=== PATIENT | female | born 1945 | race Caucasian/White ===

== ENCOUNTER 2021-10-09 14:15 | Observation (INO) | payer MEDICARE, OTHER ==
[2021-10-09 15:05] LABS: Basophils % (A) 1 %; Eosinophils # (A) 0.2 k/uL (0-0.7); Eosinophils % (A) 3 %; HCT 50.1 % (34.0-46.0); HGB 15.9 gm/dL (11.4-16.0); Lymphocytes % (A) 18 %; MCH 29.4 pg (25.0-35.0); MCHC 31.8 g/dL (31.0-37.0); MCV 92.4 fL (80.0-100.0); Mean Platelet Volume 9.4; Monocytes # (A) 0.4 k/uL (0-1.0); Monocytes % (A) 8 %; Neutrophils # (A) 3.8 k/uL (1.3-7.7); Neutrophils % (A) 69 %; Platelet Count 116 k/uL (150-450); RBC 5.42 m/uL (3.80-5.40); RDW 13.5 % (11.5-15.5); WBC 5.5 k/uL (3.8-10.6)
[2021-10-09 15:19] LABS: Albumin 4.2 g/dL (3.5-5.0); Calcium 9.4 mg/dL (8.4-10.2); Potassium 3.3 mmol/L (3.5-5.1); Prothrombin Time 11.2 sec (9.0-12.0); Total Bilirubin 0.7 mg/dL (0.2-1.3); Total Protein 7.4 g/dL (6.3-8.2)
--- NOTE | 2021-10-09 15:46 | XR ---
EXAMINATION TYPE: XR chest 2V DATE OF EXAM: 10/09/2021 3:30 PM COMPARISON: Chest radiographs from 03/16/2012. TECHNIQUE: XR chest 2V Frontal and lateral views of the chest. CLINICAL INDICATION:Female, 76 years old with history of weakness; FINDINGS: Lungs/Pleura: There is no evidence of pleural effusion, focal consolidation, or pneumothorax. Pulmonary vascularity: Unremarkable. Heart/mediastinum: Cardiomediastinal silhouette is enlarged and stable. Musculoskeletal: Multiple level degenerative disc disease changes seen throughout the spine. No acute osseous adenopathy. IMPRESSION: No acute cardiopulmonary disease/process. Cardiomegaly.
--- NOTE | 2021-10-09 15:49 | CT ---
EXAMINATION TYPE: CT brain wo con CT DLP: 1231.4 mGycm, Automated exposure control for dose reduction was used. DATE OF EXAM: 10/09/2021 3:27 PM COMPARISON: None. CLINICAL INDICATION:Female, 76 years old with history of altered mental status. TECHNIQUE: Brain: Multiple axial CT images of the brain were obtained without IV contrast. Coronal and sagittal reformats were reviewed. FINDINGS: Brain: Extra-axial spaces: No abnormal extra-axial fluid collections. Ventricular system: Within normal limits Cerebral parenchyma: No acute intraparenchymal hemorrhage or mass effect. The madden-white junction is well differentiated. Cerebral volume loss. Cerebellum: Unremarkable. Mass effect: No evidence of midline shift. Intracranial vasculature: Atherosclerotic calcifications of the intracranial vessels. Soft tissues: Normal. Calvarium/osseous structures: No depressed skull fracture. Paranasal sinuses and mastoid air cells: Clear Visualized orbits: Orbital contents are intact. IMPRESSION: No acute intracranial process.
[2021-10-09 17:31] LABS: Appearance,Urine Clear (Clear); Bilirubin,Urine Negative (Negative); Blood,Urine Negative (Negative); Color,Urine Light Yellow; Glucose,Urine (UA) Negative (Negative); Ketones,Urine Negative (Negative); Leukocyte Esterase,Urine Negative (Negative); Nitrite,Urine Negative (Negative); PH, Urine 7.5 (5.0-8.0); Protein,Urine Negative (Negative); Specific Gravity,Urine 1.009 (1.001-1.035); Urobilinogen,Urine <2.0 mg/dL (<2.0)
[2021-10-09 17:40] LABS: Amphetamine Screen,Urine Not Detected (NotDetected); Barbiturate Screen,Urine Not Detected (NotDetected); Benzodiazepines Screen,Urine Not Detected (NotDetected); Cocaine Screen,Urine Not Detected (NotDetected); Methadone Screen, Urine Not Detected (NotDetected); Opiate Screen,Urine Not Detected (NotDetected); Oxycodone Screen, Urine Not Detected (NotDetected); Phencyclidine Screen,Urine Not Detected (NotDetected); Tricyclic Antidepressant,Urine Not Detected (NotDetected); Urn Cannabinoid Scrn Not Detected (NotDetected)
--- NOTE | 2021-10-09 18:45 | ED ---
Altered Mental Status HPI - General Chief Complaint: Altered Mental Status Stated Complaint: Possible stroke, confusion Time Seen by Provider: 10/09/21 19:00 Source: patient Mode of arrival: ambulatory - History of Present Illness Initial Comments: 76-year-old female with past medical history of hypertension and hyperlipidemia who presents to the emergency department with altered mental status. Sons are at bedside and provides a history. States that they saw her in her normal self. Patient went to bed last night feeling fine. She was awoken this morning by her packaging line attendant. She states that she feels confused and delayed. She is having difficulty expressing her words. She had to be awoken by her packaging line attendant around 10:00 for which she states she normally does not sleep this long. No history of stroke. No extremity weakness. Patient follows commands however delayed wound answering questioning. No chest pain or shortness of breath. No fevers, chills or headache. Denies any recent medication changes. No history of similar in the past. No alleviating, precipitating modifying factors - Related Data Home Medications Medication Instructions Recorded Confirmed Aspirin EC [Ecotrin Low Dose] 81 mg PO DAILY 10/09/21 10/09/21 Elderberry Fruit and Flower [Black 2 cap PO DAILY 10/09/21 10/09/21 Elderberry 575 mg Cap] Esomeprazole Magnesium [NexIUM] 40 mg PO DAILY 10/09/21 10/09/21 Furosemide [Lasix] 80 mg PO DAILY 10/09/21 10/09/21 Losartan Potassium 100 mg PO HS 10/09/21 10/09/21 Metoprolol Succinate (ER) [Toprol 100 mg PO DAILY 10/09/21 10/09/21 XL] Simvastatin [Zocor] 40 mg PO HS 10/09/21 10/09/21 Topiramate 50 mg PO BID 10/09/21 10/09/21 Triamcinolone 0.1% Cream [Kenalog 1 applicatio TOPICAL BID 10/09/21 10/09/21 0.1% Cream] Previous Rx's Medication Instructions Recorded Apixaban [Eliquis] 5 mg PO BID #60 tab 10/10/21 amLODIPine [Norvasc] 10 mg PO DAILY 30 Days #30 tab 10/11/21 Allergies Allergy/AdvReac Type Severity Reaction Status Date / Time something in surgery Allergy Unknown Uncoded 10/09/21 18:53 Review of Systems ROS Statement: Those systems with pertinent positive or pertinent negative responses have been documented in the HPI. ROS Other: All systems not noted in ROS Statement are negative. Past Medical History Past Medical History: Hyperlipidemia, Hypertension History of Any Multi-Drug Resistant Organisms: None Reported Past Surgical History: Section, Hernia Repair, Orthopedic Surgery Additional Past Surgical History / Comment(s): r/l/knee, hernia Past Psychological History: No Psychological Hx Reported Smoking Status: Never smoker Past Alcohol Use History: None Reported Past Drug Use History: None Reported - Past Family History Family Family Medical History: No Reported History General Exam General appearance: alert, in no apparent distress Head exam: Present: atraumatic, normocephalic, normal inspection Eye exam: Present: normal appearance, PERRL, EOMI. Absent: scleral icterus, conjunctival injection, periorbital swelling ENT exam: Present: normal exam, mucous membranes moist Neck exam: Present: normal inspection. Absent: tenderness, meningismus, lymphadenopathy Respiratory exam: Present: normal lung sounds bilaterally. Absent: respiratory distress, wheezes, rales, rhonchi, stridor Cardiovascular Exam: Present: regular rate, normal rhythm, normal heart sounds. Absent: systolic murmur, diastolic murmur, rubs, gallop, clicks GI/Abdominal exam: Present: soft, normal bowel sounds. Absent: distended, tenderness, guarding, rebound, rigid Extremities exam: Present: normal inspection, full ROM, normal capillary refill. Absent: tenderness, pedal edema, joint swelling, calf tenderness Back exam: Present: normal inspection Neurological exam: Present: alert, oriented X3, CN II-XII intact Psychiatric exam: Present: normal affect, normal mood Skin exam: Present: warm, dry, intact, normal color. Absent: rash Course Vital Signs 10/09/21 10/09/21 10/09/21 14:28 19:59 20:00 Temperature 97.7 F 98.0 F Pulse Rate 63 57 L Pulse Rate [ 57 L Pulse Oximetery ] Respiratory 18 18 18 Rate Blood Pressure 178/112 164/80 Blood Pressure 154/73 [Right Arm] O2 Sat by Pulse 97 98 97 Oximetry Medical Decision Making - Medical Decision Making On arrival patient was placed into a 11. Thorough history and physical exam was performed. Patient does have regular. Laboratory studies were conducted and patient is sent for a CT of her brain. Potassium 3.3. CT of the brain demonstrates no acute process. Results are discussed with patient. Did recommend admission for neurology consultation. Spoke with Dr. Caal who agreed to admit the patient. - Lab Data Result diagrams: 10/10/21 08:10 10/10/21 08:10 Lab Results 10/09/21 10/09/21 10/09/21 Range/Units 14:00 14:55 14:55 WBC 5.5 (3.8-10.6) k/uL RBC 5.42 H (3.80-5.40) m/uL Hgb 15.9 (11.4-16.0) gm/dL Hct 50.1 H (34.0-46.0) % MCV 92.4 (80.0-100.0) fL MCH 29.4 (25.0-35.0) pg MCHC 31.8 (31.0-37.0) g/dL RDW 13.5 (11.5-15.5) % Plt Count 116 L (150-450) k/uL MPV 9.4 Neutrophils % 69 % Lymphocytes % 18 % Monocytes % 8 % Eosinophils % 3 % Basophils % 1 % Neutrophils # 3.8 (1.3-7.7) k/uL Lymphocytes # 1.0 (1.0-4.8) k/uL Monocytes # 0.4 (0-1.0) k/uL Eosinophils # 0.2 (0-0.7) k/uL Basophils # 0.0 (0-0.2) k/uL PT 11.2 (9.0-12.0) sec INR 1.0 (<1.2) APTT 24.0 (22.0-30.0) sec Sodium (137-145) mmol/L Potassium (3.5-5.1) mmol/L Chloride (98-107) mmol/L Carbon Dioxide (22-30) mmol/L Anion Gap mmol/L BUN (7-17) mg/dL Creatinine (0.52-1.04) mg/dL Est GFR (CKD-EPI)AfAm (>60 ml/min/1.73 sqM) Est GFR (CKD-EPI)NonAf (>60 ml/min/1.73 sqM) Glucose (74-99) mg/dL Calcium (8.4-10.2) mg/dL Total Bilirubin (0.2-1.3) mg/dL AST (14-36) U/L ALT (4-34) U/L Alkaline Phosphatase (38-126) U/L Troponin I (0.000-0.034) ng/mL Total Protein (6.3-8.2) g/dL Albumin (3.5-5.0) g/dL Urine Color Light Yellow Urine Appearance Clear (Clear) Urine pH 7.5 (5.0-8.0) Ur Specific [place] 1.009 (1.001-1.035) Urine Protein Negative (Negative) Urine Glucose (UA) Negative (Negative) Urine Ketones Negative (Negative) Urine Blood Negative (Negative) Urine Nitrite Negative (Negative) Urine Bilirubin Negative (Negative) Urine Urobilinogen <2.0 (<2.0) mg/dL Ur Leukocyte Esterase Negative (Negative) Urine Opiates Screen Not Detected (NotDetected) Ur Oxycodone Screen Not Detected (NotDetected) Urine Methadone Screen Not Detected (NotDetected) Ur Propoxyphene Screen Not Detected (NotDetected) Ur Barbiturates Screen Not Detected (NotDetected) U Tricyclic Antidepress Not Detected (NotDetected) Ur Phencyclidine Scrn Not Detected (NotDetected) Ur Amphetamines Screen Not Detected (NotDetected) U Methamphetamines Scrn Not Detected (NotDetected) U Benzodiazepines Scrn Not Detected (NotDetected) Urine Cocaine Screen Not Detected (NotDetected) U Marijuana (THC) Screen Not Detected (NotDetected) 10/09/21 10/09/21 Range/Units 14:55 14:55 WBC (3.8-10.6) k/uL RBC (3.80-5.40) m/uL Hgb (11.4-16.0) gm/dL Hct (34.0-46.0) % MCV (80.0-100.0) fL MCH (25.0-35.0) pg MCHC (31.0-37.0) g/dL RDW (11.5-15.5) % Plt Count (150-450) k/uL MPV Neutrophils % % Lymphocytes % % Monocytes % % Eosinophils % % Basophils % % Neutrophils # (1.3-7.7) k/uL Lymphocytes # (1.0-4.8) k/uL Monocytes # (0-1.0) k/uL Eosinophils # (0-0.7) k/uL Basophils # (0-0.2) k/uL PT (9.0-12.0) sec INR (<1.2) APTT (22.0-30.0) sec Sodium 144 (137-145) mmol/L Potassium 3.3 L (3.5-5.1) mmol/L Chloride 106 (98-107) mmol/L Carbon Dioxide 33 H (22-30) mmol/L Anion Gap 5 mmol/L BUN 22 H (7-17) mg/dL Creatinine 0.88 (0.52-1.04) mg/dL Est GFR (CKD-EPI)AfAm 74 (>60 ml/min/1.73 sqM) Est GFR (CKD-EPI)NonAf 64 (>60 ml/min/1.73 sqM) Glucose 107 H (74-99) mg/dL Calcium 9.4 (8.4-10.2) mg/dL Total Bilirubin 0.7 (0.2-1.3) mg/dL AST 39 H (14-36) U/L ALT 20 (4-34) U/L Alkaline Phosphatase 84 (38-126) U/L Troponin I 0.034 (0.000-0.034) ng/mL Total Protein 7.4 (6.3-8.2) g/dL Albumin 4.2 (3.5-5.0) g/dL Urine Color Urine Appearance (Clear) Urine pH (5.0-8.0) Ur Specific [place] (1.001-1.035) Urine Protein (Negative) Urine Glucose (UA) (Negative) Urine Ketones (Negative) Urine Blood (Negative) Urine Nitrite (Negative) Urine Bilirubin (Negative) Urine Urobilinogen (<2.0) mg/dL Ur Leukocyte Esterase (Negative) Urine Opiates Screen (NotDetected) Ur Oxycodone Screen (NotDetected) Urine Methadone Screen (NotDetected) Ur Propoxyphene Screen (NotDetected) Ur Barbiturates Screen (NotDetected) U Tricyclic Antidepress (NotDetected) Ur Phencyclidine Scrn (NotDetected) Ur Amphetamines Screen (NotDetected) U Methamphetamines Scrn (NotDetected) U Benzodiazepines Scrn (NotDetected) Urine Cocaine Screen (NotDetected) U Marijuana (THC) Screen (NotDetected) - EKG Data EKG Comments: EKG done at 1443 demonstrates significant artifacts for which EKG is reading is A. fib with a rate of 105. QRS 99. QTC of 418 I did repeat the patient's EKG at 1843 which demonstrates a sinus bradycardia with a rate of 55. IN interval 135. QRS 107. QTC of 442. Disposition Clinical Impression: Expressive aphasia, Hypokalemia Disposition: ADMITTED IP TO THIS [facility] Condition: Stable Is patient prescribed a controlled substance at d/c from ED?: No Time of Disposition: 19:14 Decision to Admit Reason: Admit from EC Decision Date: 10/09/21 Decision Time: 19:14
[2021-10-09] MEDS ORDERED: ASPIRIN 325 MG TAB PO STA (19:15)
[2021-10-09] MEDS ORDERED: NALOXONE 0.4 MG/ML 1 ML VIAL IV PRN (19:34)
[2021-10-09] MEDS ORDERED: SODIUM CHLORIDE 0.9% 1,000 ML IV SCH (19:45)
[2021-10-09] MEDS ORDERED: POTASSIUM CHLORIDE ER 20 MEQ TAB.ER PO STA (22:28)
[2021-10-09] MEDS: TOPIRAMATE 25 MG TAB PO SCH (23:28)
--- NOTE | 2021-10-10 01:00 | P.HPIM ---
History of Present Illness H&P Date: 10/09/21 Chief Complaint: Altered mental status difficulty with speech 76-year-old female with hypertension controlled with meds, hyperlipidemia Patient was sent into the hospital for evaluation of altered mental status and difficulty with speech. Last time she was seen normal was last night she slept in this morning which is unusual of her until her swatch maker found her in the morning still sleeping woke her up at around 10 in the morning and found that the patient was confused with difficulty finding words family and EMS were notified patient was brought into the hospital for evaluation patient denies any focal neuro deficits her symptoms resolved completely denies any numbness weakness in her feet or legs and hands. Patient denies any fevers or chills denies any urinary changes denies any abdominal pain nausea vomiting chest pain trouble breathing denies any upper respiratory infection symptoms. She denies any history of stroke or heart disease. Denies any history of diabetes denies any smoking. She denies any falls at home. She uses a walker to get around. In the ED CT of the brain was negative Blood work showed mild hypokalemia UA was negative urine drug screen was negative Review of Systems Pertinent positives as noted in HPI. All other systems were reviewed and are negative Past Medical History Past Medical History: Hyperlipidemia, Hypertension History of Any Multi-Drug Resistant Organisms: None Reported Past Surgical History: Section, Hernia Repair, Orthopedic Surgery Additional Past Surgical History / Comment(s): r/l/knee, hernia Past Psychological History: No Psychological Hx Reported Smoking Status: Never smoker Past Alcohol Use History: None Reported Past Drug Use History: None Reported - Past Family History Family Family Medical History: No Reported History Medications and Allergies Home Medications Medication Instructions Recorded Confirmed Type Aspirin EC [Ecotrin Low Dose] 81 mg PO DAILY 10/09/21 10/09/21 History Elderberry Fruit and Flower [Black 2 cap PO DAILY 10/09/21 10/09/21 History Elderberry 575 mg Cap] Esomeprazole Magnesium [NexIUM] 40 mg PO DAILY 10/09/21 10/09/21 History Furosemide [Lasix] 80 mg PO DAILY 10/09/21 10/09/21 History Losartan Potassium 100 mg PO HS 10/09/21 10/09/21 History Metoprolol Succinate (ER) [Toprol 100 mg PO DAILY 10/09/21 10/09/21 History Xl] Simvastatin [Zocor] 40 mg PO HS 10/09/21 10/09/21 History Topiramate 50 mg PO BID 10/09/21 10/09/21 History Triamcinolone 0.1% Cream [Kenalog 1 applicatio TOPICAL BID 10/09/21 10/09/21 History 0.1% Cream] Allergies Allergy/AdvReac Type Severity Reaction Status Date / Time something in surgery Allergy Unknown Uncoded 10/09/21 18:53 Physical Exam Vitals: Vital Signs Temp Pulse Resp BP Pulse Ox 10/09/21 14:28 97.7 F 63 18 178/112 97 Intake and Output 10/09/21 10/09/21 10/09/21 06:59 14:59 22:59 Other: Weight 146.51 kg Constitutional: No acute distress, conversant, pleasant Eyes: Anicteric sclerae, moist conjunctiva, Pupils equal round reactive to light ENMT: NC/AT Oropharynx clear, no erythema, or exudates Neck: Supple, no masses, or JVD No carotid bruits No thyromegaly Lungs: Clear to auscultation Clear to percussion Normal respiratory effort, no accessory muscle use Cardiovascular: Heart regular in rate and rhythm, No murmurs, gallops, or rubs No peripheral edema Abdominal: Soft Nontender, no guarding, rebound or rigidity Abdomen moving with respiration Normoactive bowel sounds obese limiting exam No abdominal wall hernia noted Skin: chronic skin changes bilateral lower third of the legs, otherwise, Normal temperature, tone, texture, turgor Extremities: No digital cyanosis No clubbing Pedal pulses intact and symmetrical Radial pulses intact and symmetrical No calf tenderness Psychiatric: Alert and oriented to person, place and time Appropriate affect fair judgement Neuro Muscles Strength 5/5 in all 4 extremities Sensation to light touch grossly present throughout Cranial nerves II-XII grossly intact No focal sensory deficits Lymphatics: no palpable cervical or supraclavicular , or inguinal lymph nodes Results CBC & Chem 7: 10/09/21 14:55 10/09/21 14:55 Labs: Abnormal Lab Results - Last 24 Hours (Table) 10/09/21 10/09/21 Range/Units 14:55 14:55 RBC 5.42 H (3.80-5.40) m/uL Hct 50.1 H (34.0-46.0) % Plt Count 116 L (150-450) k/uL Potassium 3.3 L (3.5-5.1) mmol/L Carbon Dioxide 33 H (22-30) mmol/L BUN 22 H (7-17) mg/dL Glucose 107 H (74-99) mg/dL AST 39 H (14-36) U/L Assessment and Plan Assessment: TIA check echo check carotid US CT brain negative symptoms resolved completely continue aspirin and statin lipid profile and A1C neuro checks fall precautions PT/OT neuro consult mild hypokalemia , replaced follow up levels in AM Hypertension , continue home meds, losatan and metoprolol polycythemia unknown baseline denies smoking DVT PPX heparin sc tid No code
[2021-10-10] MEDS: PANTOPRAZOLE 40 MG TABLET PO SCH (05:46)
[2021-10-10] MEDS ORDERED: PANTOPRAZOLE 40 MG TABLET PO SCH (07:30)
[2021-10-10] MEDS: ASPIRIN 81 MG PO SCH (08:05)
[2021-10-10] MEDS: METOPROLOL SUCCINATE (ER) 100 MG TAB.ER.24H PO SCH (08:05)
[2021-10-10] MEDS: TOPIRAMATE 25 MG TAB PO SCH ×2 (08:06→20:13)
--- NOTE | 2021-10-10 08:14 | US ---
EXAMINATION TYPE: US carotid duplex BILAT DATE OF EXAM: 10/10/2021 COMPARISON: NONE CLINICAL HISTORY: stroke EXAM MEASUREMENTS: RIGHT: Peak Systolic Velocity (PSV) cm/sec ----- Right CCA: 46.3 ----- Right ICA: 50.1 ----- Right ECA: 56.7 ICA/CCA ratio: 1.1 RIGHT: End Diastole cm/sec ----- Right CCA: 4.5 ----- Right ICA: 10.5 ----- Right ECA: 7.3 LEFT: Peak Systolic Velocity (PSV) cm/sec ----- Left CCA: 58.1 ----- Left ICA: 38.9 ----- Left ECA: 56.7 ICA/CCA ratio: 1.0 LEFT: End Diastole cm/sec ----- Left CCA: 11.8 ----- Left ICA: 14.0 ----- Left ECA: 6.8 VERTEBRALS (direction of flow): Right Vertebral: Retrograde Left Vertebral: Antegrade Rhythm: [place] [address] [place] [address] IMPRESSION: * Limited examination of the right ICA due to patient's body habitus. The visualized proximal portio n appears grossly unremarkable without definitive hemodynamically significant stenosis. * Moderate atherosclerotic changes of the left carotid arterial system without hemodynamically signi ficant stenosis. 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 * Per textile conversion manager, Jayden mills should it. Consider cardiology consultation. * Recommendation for CTA of the neck.
[2021-10-10 08:44] LABS: Basophils % (A) 1 %; Eosinophils # (A) 0.2 k/uL (0-0.7); Eosinophils % (A) 4 %; HCT 46.3 % (34.0-46.0); HGB 14.4 gm/dL (11.4-16.0); Lymphocytes # (A) 0.9 k/uL (1.0-4.8); Lymphocytes % (A) 17 %; MCH 29.4 pg (25.0-35.0); MCHC 31.1 g/dL (31.0-37.0); MCV 94.6 fL (80.0-100.0); Mean Platelet Volume 9.3; Monocytes # (A) 0.4 k/uL (0-1.0); Monocytes % (A) 8 %; Neutrophils # (A) 3.6 k/uL (1.3-7.7); Neutrophils % (A) 67 %; Platelet Count 108 k/uL (150-450); RBC 4.89 m/uL (3.80-5.40); RDW 13.6 % (11.5-15.5); WBC 5.4 k/uL (3.8-10.6)
[2021-10-10 08:58] LABS: African American GFR (CKD) 76 (>60 ml/min/1.73 sqM); Anion Gap 4 mmol/L; Blood Urea Nitrogen 25 mg/dL (7-17); Calcium 8.9 mg/dL (8.4-10.2); Carbon Dioxide 34 mmol/L (22-30); Chloride 106 mmol/L (98-107); Glucose 159 mg/dL (74-99); Non-African American GFR(CKD) 66 (>60 ml/min/1.73 sqM); Potassium 3.6 mmol/L (3.5-5.1); Sodium 144 mmol/L (137-145)
[2021-10-10] MEDS: APIXABAN 5 MG TAB PO SCH ×2 (11:09→20:13)
--- NOTE | 2021-10-10 12:50 | CONS ---
CONSULTATION CHIEF COMPLAINT: Transient confusion. This is a 76-year-old lady with history of hypertension and dyslipidemia who developed sudden-onset confusion. She states that her niece usually comes to clean her house once a week, and when she came in she did not open the door and was quite confused; when her son came also she had garbled speech and could not quite make out what was going on. She was brought to the hospital and gradually her confusion resolved. CT scan of the brain was negative for CVA. One EKG showed sinus rhythm with sinus bradycardia, but there was another EKG that showed atrial fibrillation. Last night she had intermittent runs of atrial fibrillation. Her TSH is normal at 4.3. Creatinine is 0.8. Hemoglobin is normal at 14.4. There is no prior history of coronary artery disease or congestive heart failure. There is no prior history of paroxysmal atrial fibrillation. I believe patient's clinical presentation is consistent with TIA and it is secondary to thromboembolic phenomenon related to the atrial fibrillation. I advised the patient to start Eliquis. I will obtain a 2D echo. Hopefully she can be discharged home tomorrow. PAST MEDICAL HISTORY: Significant for hypertension and dyslipidemia. CURRENT MEDICATIONS: Current medications include Kenalog, topiramate, Zocor 40 daily, aspirin 81 mg daily, Toprol 100 daily, losartan 100 daily, Lasix 80 daily and Nexium. ALLERGIES: There are NO KNOWN DRUG ALLERGIES. FAMILY HISTORY: Negative for premature coronary artery disease. SOCIAL HISTORY: Negative for smoking, EtOH abuse or drug abuse. REVIEW OF SYSTEMS: Fourteen out of 14 review of systems has been performed. Pertinents are as documented. PHYSICAL EXAMINATION: She is comfortable at rest. Afebrile. Heart rate is 57 beats per minute. Blood pressure is 140/80. Respiratory rate is 18. There is no jugular venous distention. There is no carotid bruit. Heart exam reveals first and second heart sounds. No gallop. No murmur. Abdomen is soft, nontender. Examination of extremities reveals bilateral chronic stasis changes, pigmentation with palpable pulses and 1+ edema. ASSESSMENT: 1. Transient ischemic attack. 2. Paroxysmal atrial fibrillation. 3. Hypertensive heart disease. 4. Dyslipidemia. PLAN: I reviewed all the workup that has been done so far, including the CT scan, carotid duplex, EKGs and rhythm strips. I will start the patient on Eliquis if okay with Neurology. I will obtain a 2D echo. Hopefully home tomorrow. Patient will need a stress test down the road to rule out ischemic heart disease, and if necessary we may do an event monitor. MARVA / VASHTI: [id number] /
--- NOTE | 2021-10-10 12:57 | CA ---
Transthoracic Echo Report Name: Birdie Oh Age: 76 Gender: F : 1945 Exam Date: 10/10/2021 08:30 Exam Location: [facility] Ht (in): 61 Wt (lb): 308 Ordering Physician: Richelle Doyle MD Attending/Referring Phys: [id number], Vivek Client Service Manager Suyapa Avendano, AISHA Procedure CPT: Indications: stroke Cardiac Hx: Fm hx of heart disease,htn,hyperlipidemia Technical Quality: Good Contrast 1: Total Dose (mL): Contrast 2: Total Dose (mL): MEASUREMENTS (Male / Female) Normal Values 2D ECHO LVOT Diameter 1.8 cm LA Volume 96.7 cm??? 18 - 58 / 22 - 52 cm??? M-MODE Aortic Root Diameter MM 3.7 cm LA Systolic Diameter MM 4.3 cm LA Ao Ratio MM 1.2 MV E Point Septal Separation 1.1 cm AV Cusp Separation MM 2.0 cm DOPPLER AV Peak Velocity 129.0 cm/s AV Peak Gradient 6.7 mmHg MV Area PHT 2.5 cm??? MR Peak Velocity 557.1 cm/s MR Peak Gradient 124.2 mmHg Mitral E Point Velocity 88.5 cm/s Mitral A Point Velocity 51.3 cm/s Mitral E to A Ratio 1.7 MV Deceleration Time 300.1 ms MV E' Velocity 6.7 cm/s Mitral E to MV E' Ratio 13.1 TR Peak Velocity 162.4 cm/s TR Peak Gradient 10.5 mmHg Right Ventricular Systolic Press 14.9 mmHg FINDINGS Left Ventricle Left ventricular ejection fraction is estimated at 55-60 %. Left ventricular cavity size normal. Left ventricular wall thickness normal. Grade 1 diastolic dysfunction. Right Ventricle The right ventricle is normal in size and function. Right Atrium The right atrium is normal in size. Left Atrium Severely increased left atrial volume. Moderately increased left atrial area. Mitral Valve Structurally normal mitral valve without significant stenosis or prolapse. There is mild to moderate mitral regurgitation. Aortic Valve Focal thickening of the aortic valve cusps. Aortic valve sclerosis. There is no aortic regurgitation. Tricuspid Valve Structurally normal tricuspid valve without significant stenosis. Pulmonary artery systolic pressure is normal. Mild tricuspid regurgitation. Pulmonic Valve Structurally normal pulmonic valve without significant stenosis. There is no pulmonic regurgitation. Pericardium Normal pericardium without effusion. Aorta Normal aortic root dimension. CONCLUSIONS Normal LV size and systolic function with mild concentric LVH. There is mild diastolic dysfunction. There is mild to moderate mitral regurgitation with mitral calcification. Aortic valve sclerosis without stenosis. No significant pulmonary hypertension no pericardial effusion Previewed by: Dr. Laura White MD (Electronically Signed) Final Date: 10 October 2021 12:56
--- NOTE | 2021-10-10 13:03 | P.PN ---
Subjective Patient was examined at bedside today not complaining of any new symptomatology. History was also obtained by some present at bedside. There is no concern for slurred speech however patient was confused and repeating words constantly. She has no deficits during my examination including slurred speech or any focal deficit sensory or motor. Objective - Vital Signs Vital signs: Vital Signs Temp 98.0 F 10/10/21 08:02 Pulse 61 10/10/21 11:08 Resp 18 10/10/21 11:08 BP 164/84 10/10/21 11:08 Pulse Ox 98 10/10/21 11:08 FiO2 Intake & Output 10/09/21 10/10/21 10/10/21 18:59 06:59 18:59 Intake Total 480 Balance 480 Weight 146.51 kg 139.706 kg Intake: Oral 480 Other: Voiding Method External Catheter External Catheter # Voids 1 1 - Exam Gen. patient is awake alert oriented 3 Cardio normal S1/S2 Respiratory no wheezing or rhonchi appreciated Abdomen soft, nontender Neuro cranial S2 12 grossly intact -5 out of 5 strength in the upper and lower extremity -Sensation within normal limits -No slurred speech noted - Labs CBC & Chem 7: 10/10/21 08:10 10/10/21 08:10 Labs: Abnormal Lab Results - Last 24 Hours (Table) 10/09/21 10/09/21 10/10/21 Range/Units 14:55 14:55 08:10 RBC 5.42 H (3.80-5.40) m/uL Hct 50.1 H 46.3 H (34.0-46.0) % Plt Count 116 L 108 L (150-450) k/uL Lymphocytes # 0.9 L (1.0-4.8) k/uL Potassium 3.3 L (3.5-5.1) mmol/L Carbon Dioxide 33 H (22-30) mmol/L BUN 22 H (7-17) mg/dL Glucose 107 H (74-99) mg/dL AST 39 H (14-36) U/L 10/10/21 Range/Units 08:10 RBC (3.80-5.40) m/uL Hct (34.0-46.0) % Plt Count (150-450) k/uL Lymphocytes # (1.0-4.8) k/uL Potassium (3.5-5.1) mmol/L Carbon Dioxide 34 H (22-30) mmol/L BUN 25 H (7-17) mg/dL Glucose 159 H (74-99) mg/dL AST (14-36) U/L Assessment and Plan Assessment: Assessment: #1 rule out TIA #2 essential hypertension #3 hyperlipidemia #4 GERD #5 obesity class III Plan: -Admit to medicine for close monitoring -Aspiration/fall precaution -Continue with aspirin and high intensity statin -She has been started on anticoagulation by neurology we will touch base with him -MRI cannot be completed at this institution secondary to BMI -Obtain hemoglobin A1c, lipid panel -Carotid ultrasound and 2-D echocardiogram -Neurology on board -Due to prophylaxis currently on a Eliquis -anticipate discharge in the next 24 hours. -PT/OT
--- NOTE | 2021-10-10 13:20 | P.CNNES ---
History of Present Illness Consult date: 10/10/21 Requesting physician: Donna Aguayo Reason for Consult: acute expressive aphasia - resolved, possible tia History of Present Illness: Patient is a 76-year-old right-handed female came to the hospital yesterday at 2:15 PM for acute stroke like symptoms with expressive aphasia. Patient's niece Jennie who does housekeeping every morning, came to her house and woke her up at 10 AM. Usually the patient does not sleep that long. When she woke up, patient was very confused about everything. Was not able to speak more than 1-2 words and would stop. She could not remember anything. Patient states that she couldn't talk, but could not make "a lot sense". Patient's son mentions that she would get stuck up on a word and repeat and couldn't talk. Patient denied any facial droop, focal weakness, numbness, headache dizziness. Vital signs arrival blood pressure 178/112, which improved to 164/80. Pulse rate 63 temperature 97.7. Initial EKG shows sinus rhythm. Repeat EKG showed atrial fibrillation with rapid ventricular rate. CT head showed no acute intracranial process. I personally reviewed CT head, agree with the findings. Blood test shows normal WBC hemoglobin 15.9, platelets 116. PT/PTT is normal. Sodium is normal potassium 3.3, BUN 22, creatinine 0.88, AST is borderline 39 normal ALT 20. Troponin negative, TSH normal. UA negative urine drug screen negative. Home medications include aspirin 81 mg, metoprolol 100 mg daily, Lasix 80 mg, Nexium, simvastatin 40 mg, Topamax 50 mg twice a day and losartan. Patient does not know the details why she takes Topamax. According to patient's son her speech significantly improved around 5:30 to 6 PM, and by 9 PM she was back to baseline. At present she has no complaints. Review of Systems Patient does have significant peripheral edema, obesity. All other review of system reviewed, unremarkable except as mentioned in HPI. Past Medical History Past Medical History: Hyperlipidemia, Hypertension History of Any Multi-Drug Resistant Organisms: None Reported Past Surgical History: Section, Hernia Repair, Orthopedic Surgery Additional Past Surgical History / Comment(s): r/l/knee, hernia Past Psychological History: No Psychological Hx Reported Smoking Status: Never smoker Past Alcohol Use History: None Reported Past Drug Use History: None Reported - Past Family History Family Family Medical History: No Reported History Medications and Allergies Home Medications Medication Instructions Recorded Confirmed Type Aspirin EC [Ecotrin Low Dose] 81 mg PO DAILY 10/09/21 10/09/21 History Elderberry Fruit and Flower [Black 2 cap PO DAILY 10/09/21 10/09/21 History Elderberry 575 mg Cap] Esomeprazole Magnesium [NexIUM] 40 mg PO DAILY 10/09/21 10/09/21 History Furosemide [Lasix] 80 mg PO DAILY 10/09/21 10/09/21 History Losartan Potassium 100 mg PO HS 10/09/21 10/09/21 History Metoprolol Succinate (ER) [Toprol 100 mg PO DAILY 10/09/21 10/09/21 History Xl] Simvastatin [Zocor] 40 mg PO HS 10/09/21 10/09/21 History Topiramate 50 mg PO BID 10/09/21 10/09/21 History Triamcinolone 0.1% Cream [Kenalog 1 applicatio TOPICAL BID 10/09/21 10/09/21 History 0.1% Cream] Apixaban [Eliquis] 5 mg PO BID #60 tab 10/10/21 Rx Allergies Allergy/AdvReac Type Severity Reaction Status Date / Time something in surgery Allergy Unknown Uncoded 10/09/21 18:53 Physical Examination - Vital Signs Vital Signs: Vital Signs Temp Pulse Pulse Resp BP BP Pulse Ox 10/10/21 08:02 98.0 F 57 L 18 148/81 96 10/10/21 04:00 98.3 F 53 L 18 132/70 93 L 10/09/21 23:37 98.6 F 78 18 128/76 97 10/09/21 20:00 57 L 18 164/80 97 10/09/21 19:59 98.0 F 57 L 18 154/73 98 10/09/21 14:28 97.7 F 63 18 178/112 97 Intake and Output 10/09/21 10/10/21 10/10/21 22:59 06:59 14:59 Intake Total 480 Balance 480 Intake: Oral 480 Other: Voiding Method External Catheter External Catheter # Voids 1 Weight 146.51 kg 139.706 kg Patient is an elderly female, in no acute distress. Patient is alert awake oriented to time place and person. Patient knows it is September 2021 and that she is in [facility]. Speech and language functions are normal. Patient can name and repeat very well. No aphasia or dysarthria. Attention, concentration and fund of knowledge is adequate. On cranial examination, pupils are round and reacting to light, visual greene are full on confrontation, extraocular muscles are intact with no nystagmus. Face is symmetric, tongue protrudes to the midline. Palatal elevation and sensation normal, hearing is slightly decreased and shoulder shrug normal, facial sensation normal. Shoulder shrug normal. On muscle strength testing, there is no pronator drift and the strength is normal in arms and legs distally and proximally. Deep tendon reflexes are 1+ in the upper limbs, absent in the lower limbs, plantars are flat. Sensory to touch is equal with no neglect. Cerebellar function showed no ataxia for [id number] testing. No dysdiadochokinesia. Tone and bulk of muscles normal. Gait deferred. On general examination, there is no carotid bruit or murmur, S1-S2 audible. Abdomen is soft nontender. No organomegaly, bowel sounds present. Chest is clear. Patient has significant peripheral edema, some weeping of the skin lesions. Results - Laboratory Findings CBC and BMP: 10/10/21 08:10 10/10/21 08:10 Abnormal Lab Findings: Abnormal Labs 10/09/21 10/09/21 10/10/21 14:55 14:55 08:10 RBC 5.42 H Hct 50.1 H 46.3 H Plt Count 116 L 108 L Lymphocytes # 0.9 L Potassium 3.3 L Carbon Dioxide 33 H BUN 22 H Glucose 107 H AST 39 H 10/10/21 08:10 RBC Hct Plt Count Lymphocytes # Potassium Carbon Dioxide 34 H BUN 25 H Glucose 159 H AST Assessment and Plan Assessment: * TIA manifesting with transient expressive aphasia, that resolved within 24 hours. Current NIH stroke scale is 0. * New onset atrial fibrillation * Hypertension * Morbid obesity Plan: * Patient had a TIA manifesting with transient expressive aphasia. Probably embolic from new onset atrial fibrillation. * Patient's current neurological examination is normal, with NIH stroke scale of 0. Neurologically cleared to start anticoagulation with Eliquis * Carotid Doppler revealed limited examination of the right ICA due to patient's body habitus. The visualized proximal portion appears grossly unremarkable without definitive hemodynamically significant stenosis. Moderate atherosc lerotic changes of the left carotid arterial system without hemodynamically significant stenosis. Retrograde flow within the right vertebral artery concerning for subclavian steal syndrome. Recommend CTA of the neck. * We will check CTA of head and neck. * Fasting lipid panel, hemoglobin A1c 5.9 * 2-D echo * Discussed with patient's son in detail. * Telemetric monitoring. * DVT prophylaxis: Patient started on Eliquis. * Neurology will follow. Thank you for the consult.
[2021-10-10 14:56] LABS: Chol/HDL Ratio 3.19 Ratio; LDL Cholesterol,Calculated 105.8 mg/dL (0.0-131.0)
--- NOTE | 2021-10-10 15:23 | CT ---
EXAMINATION TYPE: CT angio head neck CT DLP: 2004.5 mGycm, Automated exposure control for dose reduction was used. DATE OF EXAM: 10/10/2021 2:48 PM COMPARISON: Carotid ultrasound 10/10/2021. CLINICAL INDICATION:Female, 76 years old with history of TIA; PHH, Acute expressive aphasia, possible TIA TECHNIQUE: Axially acquired helical CT angiogram of the head and neck was obtained before and after t he administration of contrast utilizing 65 cc of Isovue-370 administered intravenously. Axial images are supplemented with 3D reconstructions which were post-processed at an independent workstation. ALICE CET criteria used. FINDINGS: CTA HEAD: No evidence of acute intracranial hemorrhage, mass effect, or midline shift. The ventricles, sulci, a nd cisterns are unremarkable. Cerebral volume loss. Orbital contents are intact. The visualized portions of the internal carotid arteries, middle cerebral arteries, anterior cerebral arteries, and posterior cerebral arteries are patent. The basilar and vertebral arteries are patent. CTA NECK: Right Carotid System: The common carotid artery and external carotid artery are patent. Mild calcified plaque in the proxim al internal carotid artery. The carotid bifurcation demonstrates no evidence of hemodynamically signi ficant stenosis. The remaining portions of the internal carotid artery demonstrate normal size withou t significant narrowing. There is medial deviation of the right common carotid artery. Left Carotid System: The common carotid artery and external carotid artery are patent. Mild calcified plaque at the origin of the internal carotid artery. Less than 50% stenosis at the origin of the left internal carotid ar jessica secondary to calcified plaque. The remaining portions of the internal carotid artery demonstrate normal size without significant narrowing. There is medial deviation of the left common carotid shai ry. Vertebral arteries are patent without evidence hemodynamically significant stenosis. There is a three-vessel aortic arch. The origins of the great vessels are patent. No evidence of hemo dynamically significant stenosis. IMPRESSION: 1. Less than 50% stenosis at the origin of the left internal carotid artery secondary to calcified pl aque. No hemodynamically significant stenosis within the right carotid system. No evidence of dissect ion of the cervical internal carotid arteries or vertebral arteries. 2. No evidence of high-grade stenosis or intracranial aneurysm.
[2021-10-10] MEDS ORDERED: ATORVASTATIN 20 MG TAB PO SCH (21:00)
[2021-10-10] MEDS ORDERED: LOSARTAN 50 MG TAB PO SCH (21:00)
[2021-10-11] MEDS: PANTOPRAZOLE 40 MG TABLET PO SCH (06:15)
[2021-10-11] MEDS: ASPIRIN 81 MG PO SCH (07:33)
[2021-10-11] MEDS: APIXABAN 5 MG TAB PO SCH (07:33)
[2021-10-11] MEDS: TOPIRAMATE 25 MG TAB PO SCH (07:33)
[2021-10-11] MEDS: METOPROLOL SUCCINATE (ER) 100 MG TAB.ER.24H PO SCH (07:33)
[2021-10-11 07:38] VITALS: RESP 18; TEMP 97.9
[2021-10-11] MEDS ORDERED: amLODIPine 10 MG TAB PO SCH (09:00)
--- NOTE | 2021-10-11 10:57 | P.DS ---
Providers Date of admission: 10/09/21 19:09 Attending physician: Carlo Caal MD Consults: 10/09/21 19:34 Consult Physician Urgent Consulting Provider: Dereck Thao Consult Reason/Comments: acute expressive aphasia - resolved, possible tia Do you want consulting provider notified?: Yes 10/10/21 01:45 Consult Physician Urgent Consulting Provider: Krys Celis Consult Reason/Comments: A fib Do you want consulting provider notified?: Yes, Notify in am Primary care physician: Physician Nonstaff Hospital Course: 76-year-old female with hypertension controlled with meds, hyperlipidemia Patient was sent into the hospital for evaluation of altered mental status and difficulty with speech. Last time she was seen normal was last night she slept in this morning which is unusual of her until her commercial housekeeper found her in the morning still sleeping woke her up at around 10 in the morning and found that the patient was confused with difficulty finding words family and EMS were notified patient was brought into the hospital for evaluation patient denies any focal neuro deficits her symptoms resolved completely denies any numbness weakness in her feet or legs and hands. Patient denies any fevers or chills denies any urinary changes denies any abdominal pain nausea vomiting chest pain trouble breathing denies any upper respiratory infection symptoms. She denies any history of stroke or heart disease. Denies any history of diabetes denies any smoking. She denies any falls at home. She uses a walker to get around. In the ED CT of the brain was negative Blood work showed mild hypokalemia UA was negative urine drug screen was negative Patient was evaluated by cardiology as well as neurology. CT results were completed which showed less than 50% stenosis at the origin of the left internal carotid artery with some calcified plaque. No hemodynamic compromise noted on the right carotid system. No evidence of dissection of the cervical internal carotid arteries or vertebral arteries noted. No evidence of high-grade stenosis which are continue aneurysms noted. I present discuss his case with the neurologist and has recommended the patient is okay to be discharged from their perspective and to continue with the same treatment. Cardiology is also on board that is also clear the patient for discharge and to follow-up with both their teens outpatient. Patient is okay at this time not complaining of any new symptoms no neurologic deficits noted vital signs have been stable overnight events as per RN. Patient is advised to follow with neurology, cardiology and PCP within 1 week of discharge she demonstrates understanding. Patient Condition at Discharge: Stable Plan - Discharge Summary Discharge Rx Participant: No New Discharge Prescriptions: New amLODIPine [Norvasc] 10 mg PO DAILY 30 Days #30 tab Apixaban [Eliquis] 5 mg PO BID #60 tab Continue Triamcinolone 0.1% Cream [Kenalog 0.1% Cream] 1 applicatio TOPICAL BID Elderberry Fruit and Flower [Black Elderberry 575 mg Cap] 2 cap PO DAILY Losartan Potassium 100 mg PO HS Topiramate 50 mg PO BID Simvastatin [Zocor] 40 mg PO HS Aspirin EC [Ecotrin Low Dose] 81 mg PO DAILY Metoprolol Succinate (ER) [Toprol XL] 100 mg PO DAILY Furosemide [Lasix] 80 mg PO DAILY Esomeprazole Magnesium [NexIUM] 40 mg PO DAILY Discharge Medication List Aspirin EC [Ecotrin Low Dose] 81 mg PO DAILY 10/09/21 [History] Elderberry Fruit and Flower [Black Elderberry 575 mg Cap] 2 cap PO DAILY 10/09/21 [History] Esomeprazole Magnesium [NexIUM] 40 mg PO DAILY 10/09/21 [History] Furosemide [Lasix] 80 mg PO DAILY 10/09/21 [History] Losartan Potassium 100 mg PO HS 10/09/21 [History] Metoprolol Succinate (ER) [Toprol XL] 100 mg PO DAILY 10/09/21 [History] Simvastatin [Zocor] 40 mg PO HS 10/09/21 [History] Topiramate 50 mg PO BID 10/09/21 [History] Triamcinolone 0.1% Cream [Kenalog 0.1% Cream] 1 applicatio TOPICAL BID 10/09/21 [History] Apixaban [Eliquis] 5 mg PO BID #60 tab 10/10/21 [Rx] amLODIPine [Norvasc] 10 mg PO DAILY 30 Days #30 tab 10/11/21 [Rx] Follow up Appointment(s)/Referral(s): Nonstaff,Physician [Primary Care Provider] - 1-2 days Julio Leon MD [STAFF PHYSICIAN] - 2 Weeks Dereck Thao MD [STAFF PHYSICIAN] - 1 Week Patient Instructions/Handouts: Apixaban (By mouth), A-fib (Atrial Fibrillation) (GEN) Discharge Disposition: HOME SELF-CARE
[2021-10-11 11:19] VITALS: BP 154/76; PULSE 57
--- NOTE | 2021-10-11 11:50 | P.PN ---
Subjective This is a 76-year-old female past medical history of hypertension, dyslipidemia. She does not follow with roundsman. We have been asked to the patient in consultation for new onset atrial fibrillation. Patient presents to the emergency department with acute onset confusion, acute onset expressive aphasia. Patient's symptoms resolved. Neurology has been counseled to see the patient. Initial EKG revealed atrial fibrillation with rapid ventricular response, heart rate 105. Patient spontaneously converted to sinus mechanism. * Echocardiogram revealed EF 5560%, moderately decreased left atrial area, mild to moderate mitral regurgitation, mild concentric LVH * Carotid Dopplers revealed limited examination of the right secondary to pat ient's body habitus. Moderate atherosclerotic changes carotid artery without hemodynamically significant stenosis. Retrograde flow within the right vertebral artery is concerning for subclavian steal syndrome 10/11/2021 Patient seen and examined at bedside, no acute distress. She is maintaining sinus rhythm with rates 50s-60s. Her symptoms resolved. She denies any palp itations and chest pain or shortness of breath. Blood pressure elevated this morning at 172/95. She's currently maintained on Eliquis 5 mg twice a day, aspirin 81 mg daily, atorvastatin 20 mg nightly, metoprolol succinate 100 mg daily, losartan 100mg nightly GENERAL: Well-appearing, well-nourished and in no acute distress. NECK: Supple without JVD or thyromegaly. LUNGS: Breath sounds clear to auscultation bilaterally. Respiration equal and unlabored. No wheezes, rales or rhonchi. HEART: Regular rate and rhythm without murmurs, rubs or gallops. S1 and S2 heard. EXTREMITIES: Normal range of motion, no edema. No clubbing or cyanosis. Peripheral pulses intact. ASSESSMENT Acute onset confusion and acute onset specimen aphasia, symptoms resolved TIA Paroxysmal atrial fibrillation, started on Eliquis, maintaining sinus mechanism Hypertension Dyslipidemia PLAN Increase atorvastatin 40mg daily Start amlodipine 10 mg daily Continue Eliquis, case management consulted for Eliquis coverage Continue losartan and metoprolol From cardiology perspective, patient stable to be discharged home. Follow up with Dr. Leon in 2 weeks Nurse Practitioner note has been reviewed, I agree with a documented findings and plan of care. Patient was seen and examined. Objective - Vital Signs Vital signs: Vital Signs Temp 98.0 F 10/10/21 08:02 Pulse 61 10/10/21 13:10 Resp 18 10/10/21 11:08 BP 164/84 10/10/21 11:08 Pulse Ox 98 10/10/21 11:08 FiO2 Intake & Output 10/09/21 10/10/21 10/10/21 18:59 06:59 18:59 Intake Total 480 120 Balance 480 120 Weight 146.51 kg 139.706 kg Intake: Oral 480 120 Other: Voiding Method External Catheter External Catheter # Voids 1 2 # Bowel Movements 0 - Labs CBC & Chem 7: 10/10/21 08:10 10/10/21 08:10 Labs: Abnormal Lab Results - Last 24 Hours (Table) 10/09/21 10/09/21 10/10/21 Range/Units 14:55 14:55 08:10 RBC 5.42 H (3.80-5.40) m/uL Hct 50.1 H 46.3 H (34.0-46.0) % Plt Count 116 L 108 L (150-450) k/uL Lymphocytes # 0.9 L (1.0-4.8) k/uL Potassium 3.3 L (3.5-5.1) mmol/L Carbon Dioxide 33 H (22-30) mmol/L BUN 22 H (7-17) mg/dL Glucose 107 H (74-99) mg/dL AST 39 H (14-36) U/L 10/10/21 Range/Units 08:10 RBC (3.80-5.40) m/uL Hct (34.0-46.0) % Plt Count (150-450) k/uL Lymphocytes # (1.0-4.8) k/uL Potassium (3.5-5.1) mmol/L Carbon Dioxide 34 H (22-30) mmol/L BUN 25 H (7-17) mg/dL Glucose 159 H (74-99) mg/dL AST (14-36) U/L
--- NOTE | 2021-10-11 13:55 | P.PN ---
Subjective Progress Note Date: 10/11/21 Patient was seen for follow-up. Patient offers no complaints. Patient believes her speech is back to normal. Memory functions are normal. Telemetry monitoring at present showing sinus rhythm with sinus bradycardia. No other arrhythmia. Objective - Vital Signs Vital signs: Vital Signs Temp 97.9 F 10/11/21 07:30 Pulse 58 L 10/11/21 07:30 Resp 18 10/11/21 07:30 BP 172/95 10/11/21 07:30 Pulse Ox 96 10/11/21 07:30 FiO2 Intake & Output 10/10/21 10/11/21 10/11/21 18:59 06:59 18:59 Intake Total 120 250 Output Total 400 Balance 120 -150 Intake: Oral 120 250 Output: Urine 400 Other: Voiding Method External Catheter External Catheter External Catheter # Voids 2 4 # Bowel Movements 0 - Exam Mental status, speech and language functions are normal. Patient can name and repeat very well. Cranial nerves are normal. Visual greene are full, face is symmetric and tongue protrudes to the midline. Muscle strength is normal in the arms and legs. No ataxia. She does have peripheral edema. Some venous stasis in the lower expertise. Hyperpigmentation in the distal lower extremities. - Labs CBC & Chem 7: 10/10/21 08:10 10/10/21 08:10 Assessment and Plan Assessment: * TIA manifesting with transient expressive aphasia, that resolved within 24 hours. Current NIH stroke scale is 0. * New onset atrial fibrillation * Hypertension * Morbid obesity Plan: * Patient had a TIA manifesting with transient expressive aphasia. Probably embolic from new onset atrial fibrillation. * Patient's current neurological examination is normal, with NIH stroke scale of 0. Patient started on Eliquis 5 mg twice a day. She is tolerating it well. * Carotid Doppler revealed limited examination of the right ICA due to patient's body habitus. The visualized proximal portion appears grossly unremarkable without definitive hemodynamically significant stenosis. Moderate atherosclerotic changes of the left carotid arterial system without hemodynamically significant stenosis. Retrograde flow within the right vertebral artery concerning for subclavian steal syndrome. Recommend CTA of the neck. * CTA of head and neck revealed less than 50% stenosis of the origin of left ICA secondary to calcified plaque. No hemodynamically significant stenosis within the right carotid system. No evidence of dissection of the cervical internal carotid arteries or vertebral arteries. No evidence of high-grade stenosis or intracranial aneurysm. * Fasting lipid panel, hemoglobin A1c 5.9 * 2-D echo revealed normal left ventricle size and systolic function with mild concentric LVH. There is mild diastolic dysfunction. Mild to moderate MR with mitral calcification. Aortic valve sclerosis without stenosis. * Discussed with patient's son in detail. * Neurologically clear for discharge. Discussed with primary physician.
[2021-10-11] MEDS ORDERED: ATORVASTATIN 40 MG TAB PO SCH (21:00)
== END 2021-10-11 13:56 | disposition home or self-care (01) ==
LOC: EC 14:15 → 3SCARD 19:09
PROVIDERS: ADMIT Internal Medicine; ATTEND Internal Medicine
DX: R47.01 Aphasia (principal); I48.0 Paroxysmal atrial fibrillation; E87.6 Hypokalemia; I11.9 Hypertensive heart disease without heart failure; R41.82 Altered mental status, unspecified; I65.22 Occlusion and stenosis of left carotid artery; E78.5 Hyperlipidemia, unspecified; D75.1 Secondary polycythemia; K21.9 Gastro-esophageal reflux disease without esophagitis; R00.1 Bradycardia, unspecified; E66.01 Morbid (severe) obesity due to excess calories; Z68.43 Body mass index [BMI] 50.0-59.9, adult; Z79.82 Long term (current) use of aspirin; Z79.01 Long term (current) use of anticoagulants; Z79.899 Other long term (current) drug therapy; Z98.891 History of uterine scar from previous surgery; Z98.890 Other specified postprocedural states
CPT/HCPCS: 96361 ×2; 96360; 99285; 36415; 93005; 93306; 97162; 97166; 80061; 80053; 80048; 84443; 84484; 85025 ×2; 85610; 85730; 81003; 80306; 83036; 71046; 93880; 70496; 70450; 70498; G0378 ×3; Q9967

== ENCOUNTER 2022-10-22 12:19 | Inpatient (IN) | payer MEDICARE, OTHER ==
[2022-10-22 12:27] LABS: Glucose,Whole Blood 125 mg/dL (70-110)
[2022-10-22 12:44] LABS: Basophils % (A) 1 %; Eosinophils # (A) 0.2 k/uL (0-0.7); Eosinophils % (A) 3 %; HCT 42.4 % (34.0-46.0); HGB 14.3 gm/dL (11.4-16.0); Lymphocytes # (A) 1.2 k/uL (1.0-4.8); Lymphocytes % (A) 20 %; MCHC 33.8 g/dL (31.0-37.0); MCV 91.7 fL (80.0-100.0); Mean Platelet Volume 9.1; Monocytes # (A) 0.4 k/uL (0-1.0); Monocytes % (A) 7 %; Neutrophils # (A) 3.7 k/uL (1.3-7.7); Neutrophils % (A) 66 %; Platelet Count 105 k/uL (150-450); RBC 4.63 m/uL (3.80-5.40); WBC 5.7 k/uL (3.8-10.6)
[2022-10-22 12:53] LABS: Partial Thromboplastin Time 23.8 sec (22.0-30.0); Prothrombin Time 10.9 sec (9.0-12.0)
[2022-10-22 12:54] LABS: Lactic Acid, Venous 1.6 mmol/L (0.7-2.0)
[2022-10-22 12:55] LABS: ALT 21 U/L (4-34); AST 35 U/L (14-36); African American GFR (CKD) >90 (>60 ml/min/1.73 sqM); Albumin 3.8 g/dL (3.5-5.0); Alkaline Phosphatase 106 U/L (38-126); Anion Gap 10 mmol/L; Blood Urea Nitrogen 15 mg/dL (7-17); Calcium 8.7 mg/dL (8.4-10.2); Carbon Dioxide 26 mmol/L (22-30); Chloride 106 mmol/L (98-107); Glucose 134 mg/dL (74-99); Non-African American GFR(CKD) 85 (>60 ml/min/1.73 sqM); Potassium 3.6 mmol/L (3.5-5.1); Sodium 142 mmol/L (137-145); Total Bilirubin 0.9 mg/dL (0.2-1.3)
--- NOTE | 2022-10-22 13:50 | CT ---
EXAMINATION TYPE: CT brain wo con DATE OF EXAM: 10/22/2022 COMPARISON: 10/09/2021 HISTORY: AMS. Reported hx of stroke. Not called a codee stroke CT DLP: 1221.[address] of the brain was performed. The ventricles, basal cisterns and sulci overlying the cerebral convexities demonstrate mild enlargem ent. There is no evidence for intracranial hemorrhage or sulcal effacement. There is decreased attenuation about the periventricular white matter and deep white matter of both c erebral hemispheres, compatible with chronic small vessel ischemia. Differential diagnosis does inclu de demyelination. No mass effects are seen.No midline shift. Osseous calvarium is intact. If symptoms persist consider MRI. IMPRESSION: 1. Age related atrophic and chronic small vessel ischemic change without acute intracranial process s een at this time.
--- NOTE | 2022-10-22 14:03 | XR ---
EXAMINATION TYPE: XR chest 2V DATE OF EXAM: 10/22/2022 1:47 PM COMPARISON: Chest radiographs from 10/09/2021 TECHNIQUE: XR chest 2V Frontal and lateral views of the chest. CLINICAL INDICATION:Female, 77 years old with history of altered mental status; FINDINGS: Lungs/Pleura: Low lung volumes are present. There is no evidence of pleural effusion, focal consolida tion, or pneumothorax. Pulmonary vascularity: Unremarkable. Heart/mediastinum: Cardiomediastinal silhouette is enlarged and stable. Musculoskeletal: No acute osseous pathology. IMPRESSION: Low lung volumes with a generalized hazy appearance which could represent atelectasis versus pulmonar y edema correlate with serum BNP.
--- NOTE | 2022-10-22 14:27 | ED ---
Altered Mental Status HPI - General Chief Complaint: Altered Mental Status Stated Complaint: AMS, History of Stroke Time Seen by Provider: 10/22/22 12:26 Source: EMS Mode of arrival: EMS Limitations: altered mental status - History of Present Illness Initial Comments: 7-year-old female with a past medical history significant for prior TIA thought to be due to embolus with history of new onset A. fib at time of TIA presents to the ED with a chief complaint of aphasia. Per family last known well was approximately 20:00 last night. Son states today that his cousin went to check on his mother today and she was "not making any sense". Today States That She Is Unable to Express Herself Clearly and Has Difficult time performing tasks. Notes over the past few months has had difficulty with memory. States her current symptoms similar to when she had a TIA in the past. - Related Data Home Medications Medication Instructions Recorded Confirmed Aspirin EC [Ecotrin Low Dose] 81 mg PO DAILY 10/09/21 10/09/21 Elderberry Fruit and Flower [Black 2 cap PO DAILY 10/09/21 10/09/21 Elderberry 575 mg Cap] Esomeprazole Magnesium [NexIUM] 40 mg PO DAILY 10/09/21 10/09/21 Furosemide [Lasix] 80 mg PO DAILY 10/09/21 10/09/21 Losartan Potassium 100 mg PO HS 10/09/21 10/09/21 Metoprolol Succinate (ER) [Toprol 100 mg PO DAILY 10/09/21 10/09/21 XL] Simvastatin [Zocor] 40 mg PO HS 10/09/21 10/09/21 Topiramate 50 mg PO BID 10/09/21 10/09/21 Triamcinolone 0.1% Cream [Kenalog 1 applicatio TOPICAL BID 10/09/21 10/09/21 0.1% Cream] Previous Rx's Medication Instructions Recorded Apixaban [Eliquis] 5 mg PO BID #60 tab 10/10/21 amLODIPine [Norvasc] 10 mg PO DAILY 30 Days #30 tab 10/11/21 Allergies Allergy/AdvReac Type Severity Reaction Status Date / Time something in surgery Allergy Unknown Uncoded 10/09/21 18:53 Review of Systems ROS Statement: Those systems with pertinent positive or pertinent negative responses have been documented in the HPI. ROS Other: All systems not noted in ROS Statement are negative. Past Medical History Past Medical History: Hyperlipidemia, Hypertension History of Any Multi-Drug Resistant Organisms: None Reported Past Surgical History: Section, Hernia Repair, Orthopedic Surgery Additional Past Surgical History / Comment(s): r/l/knee, hernia Past Psychological History: No Psychological Hx Reported Smoking Status: Never smoker Past Alcohol Use History: None Reported Past Drug Use History: None Reported - Past Family History Family Family Medical History: No Reported History General Exam Limitations: altered mental status General appearance: alert, in no apparent distress Eye exam: Present: normal appearance, PERRL, EOMI ENT exam: Present: mucous membranes moist, other (No significant facial symmetry.) Respiratory exam: Present: normal lung sounds bilaterally Cardiovascular Exam: Present: regular rate, normal rhythm GI/Abdominal exam: Present: soft Neurological exam: Present: alert, altered (Oriented to self but not time or place. GCS 14. Patient follows most commands however will repeatedly follow the same commands without moving onto the next.), other (NIH stroke scale of 3. 2 points for LOC and 1. for aphasia.) Skin exam: Present: warm, dry Course Vital Signs 10/22/22 10/22/22 10/22/22 12:20 12:35 12:50 Temperature 97.0 F L Pulse Rate 90 96 89 Respiratory 18 18 15 Rate Blood Pressure 104/88 135/82 143/91 O2 Sat by Pulse 97 97 97 Oximetry 10/22/22 10/22/22 10/22/22 14:00 14:15 14:30 Temperature Pulse Rate 84 93 90 Respiratory 16 20 16 Rate Blood Pressure 162/126 128/72 115/78 O2 Sat by Pulse 97 96 96 Oximetry 10/22/22 10/22/22 14:45 16:00 Temperature Pulse Rate 93 89 Respiratory 16 20 Rate Blood Pressure 106/91 118/76 O2 Sat by Pulse 96 97 Oximetry Medical Decision Making - Medical Decision Making Was pt. sent in by a medical professional or institution (, PA, DRYWALL SPRAYER, urgent c are, hospital, or shelter...) When possible be specific @ -No Did you speak to anyone other than the patient for history (EMS, parent, family, police, friend...)? What history was obtained from this source @ -Spoke to the patient's son who provided entirety of history. For further details please see HPI. Did you review nursing and triage notes (agree or disagree)? Why? @ -I reviewed and agree with nursing and triage notes Were old charts reviewed (outside hosp., previous admission, EMS record, old EKG, old radiological studies, urgent care reports/EKG's, shelter records)? Report findings @ -No old charts were reviewed Differential Diagnosis (chest pain, altered mental status, abdominal pain women, abdominal pain men, vaginal bleeding, weakness, fever, dyspnea, syncope, headache, dizziness, GI bleed, back pain, seizure, CVA, palpatations, mental health, musculoskeletal)? @ -Differential Altered Mental Status: Hypoglycemia, DKA, hypercapnia, ETOH, overdose, CO poisoning, trauma, myxedema coma, HTN encephalopathy, infection, encephalitis, psychosis, intercranial hemorrhage, hepatic encephalopathy, meningitis, CVA, this is not meant to be an all-inclusive list EKG interpreted by me (3pts min.). @ -As above X-rays interpreted by me (1pt min.). @ -None done CT interpreted by me (1pt min.). @ -CT brain and CT tolowa dee-ni' of [place]/neck showed no acute process. U/S interpreted by me (1pt. min.). @ -None done What testing was considered but not performed or refused? (CT, X-rays, U/S, labs)? Why? @ -None What meds were considered but not given or refused? Why? @ -None Did you discuss the management of the patient with other professionals (professionals i.e. , PA, DRYWALL SPRAYER, lab, RT, psych nurse, social research assistant, validation scientist, teacher, fire information officer, dependency case manager)? Give summary @ -East discussed with Dr. Hart who accepted admission. Was smoking cessation discussed for >3mins.? @ -No Was critical care preformed (if so, how long)? @ -No Were there social determinants of health that impacted care today? How? (Homelessness, low income, unemployed, alcoholism, drug addiction, transportation, low edu. Level, literacy, decrease access to med. care, senior living, rehab)? @ -No Was there de-escalation of care discussed even if they declined (Discuss DNR or withdrawal of care, Hospice)? DNR status @ -No What co-morbidities impacted this encounter? (DM, HTN, Smoking, COPD, CAD, Cancer, CVA, ARF, Chemo, Hep., AIDS, mental health diagnosis, sleep apnea, morbid obesity)? @ -A. fib Was patient admitted / discharged? Hospital course, mention meds given and route, prescriptions, significant lab abnormalities, going to OR and other pertinent info. @ -Admission. Imaging studies x-ray show no acute process. Laboratory studies only significant for an elevated ammonia 144. Patient will be admitted inpatient with consult to neurology for TIA/CVA workup. The splenic care with patient's family who is in agreement. Undiagnosed new problem with uncertain prognosis? @ -No Drug Therapy requiring intensive monitoring for toxicity (Heparin, Nitro, Insulin, Cardizem)? @ -No Were any procedures done? @ -No Diagnosis/symptom? @ -Aphasia/altered mental status Acute, or Chronic, or Acute on Chronic? @ -Acute Uncomplicated (without systemic symptoms) or Complicated (systemic symptoms)? @ -Complicated Side effects of treatment? @ -No Exacerbation, Progression, or Severe Exacerbation? @ -No Poses a threat to life or bodily function? How? (Chest pain, USA, CA, pneumonia, PE, COPD, DKA, ARF, appy, cholecystitis, CVA, Diverticulitis, Homicidal, Suicidal, threat to staff... and all critical care pts) @ -Yes, rule out CVA. - Lab Data Result diagrams: 10/22/22 12:27 10/22/22 12:27 Lab Results 10/22/22 10/22/22 10/22/22 Range/Units 12:26 12:27 12:27 WBC 5.7 (3.8-10.6) k/uL RBC 4.63 (3.80-5.40) m/uL Hgb 14.3 (11.4-16.0) gm/dL Hct 42.4 (34.0-46.0) % MCV 91.7 (80.0-100.0) fL MCH 31.0 (25.0-35.0) pg MCHC 33.8 (31.0-37.0) g/dL RDW 14.0 (11.5-15.5) % Plt Count 105 L (150-450) k/uL MPV 9.1 Neutrophils % 66 % Lymphocytes % 20 % Monocytes % 7 % Eosinophils % 3 % Basophils % 1 % Neutrophils # 3.7 (1.3-7.7) k/uL Lymphocytes # 1.2 (1.0-4.8) k/uL Monocytes # 0.4 (0-1.0) k/uL Eosinophils # 0.2 (0-0.7) k/uL Basophils # 0.0 (0-0.2) k/uL PT 10.9 (9.0-12.0) sec INR 1.0 (<1.2) APTT 23.8 (22.0-30.0) sec Sodium (137-145) mmol/L Potassium (3.5-5.1) mmol/L Chloride (98-107) mmol/L Carbon Dioxide (22-30) mmol/L Anion Gap mmol/L BUN (7-17) mg/dL Creatinine (0.52-1.04) mg/dL Est GFR (CKD-EPI)AfAm (>60 ml/min/1.73 sqM) Est GFR (CKD-EPI)NonAf (>60 ml/min/1.73 sqM) Glucose (74-99) mg/dL POC Glucose (mg/dL) 125 H (70-110) mg/dL POC Glu Facility Maintenance Technician ID Everton Mares Plasma Lactic Acid Toan (0.7-2.0) mmol/L Calcium (8.4-10.2) mg/dL Total Bilirubin (0.2-1.3) mg/dL AST (14-36) U/L ALT (4-34) U/L Alkaline Phosphatase (38-126) U/L Ammonia (<30) umol/L Troponin I (0.000-0.034) ng/mL Total Protein (6.3-8.2) g/dL Albumin (3.5-5.0) g/dL Urine Color Urine Appearance (Clear) Urine pH (5.0-8.0) Ur Specific [place] (1.001-1.035) Urine Protein (Negative) Urine Glucose (UA) (Negative) Urine Ketones (Negative) Urine Blood (Negative) Urine Nitrite (Negative) Urine Bilirubin (Negative) Urine Urobilinogen (<2.0) mg/dL Ur Leukocyte Esterase (Negative) 10/22/22 10/22/22 10/22/22 Range/Units 12:27 12:27 12:27 WBC (3.8-10.6) k/uL RBC (3.80-5.40) m/uL Hgb (11.4-16.0) gm/dL Hct (34.0-46.0) % MCV (80.0-100.0) fL MCH (25.0-35.0) pg MCHC (31.0-37.0) g/dL RDW (11.5-15.5) % Plt Count (150-450) k/uL MPV Neutrophils % % Lymphocytes % % Monocytes % % Eosinophils % % Basophils % % Neutrophils # (1.3-7.7) k/uL Lymphocytes # (1.0-4.8) k/uL Monocytes # (0-1.0) k/uL Eosinophils # (0-0.7) k/uL Basophils # (0-0.2) k/uL PT (9.0-12.0) sec INR (<1.2) APTT (22.0-30.0) sec Sodium 142 (137-145) mmol/L Potassium 3.6 (3.5-5.1) mmol/L Chloride 106 (98-107) mmol/L Carbon Dioxide 26 (22-30) mmol/L Anion Gap 10 mmol/L BUN 15 (7-17) mg/dL Creatinine 0.66 (0.52-1.04) mg/dL Est GFR (CKD-EPI)AfAm >90 (>60 ml/min/1.73 sqM) Est GFR (CKD-EPI)NonAf 85 (>60 ml/min/1.73 sqM) Glucose 134 H (74-99) mg/dL POC Glucose (mg/dL) (70-110) mg/dL POC Glu Facility Maintenance Technician ID Plasma Lactic Acid Toan 1.6 (0.7-2.0) mmol/L Calcium 8.7 (8.4-10.2) mg/dL Total Bilirubin 0.9 (0.2-1.3) mg/dL AST 35 (14-36) U/L ALT 21 (4-34) U/L Alkaline Phosphatase 106 (38-126) U/L Ammonia 144 H (<30) umol/L Troponin I <0.012 (0.000-0.034) ng/mL Total Protein 7.0 (6.3-8.2) g/dL Albumin 3.8 (3.5-5.0) g/dL Urine Color Urine Appearance (Clear) Urine pH (5.0-8.0) Ur Specific [place] (1.001-1.035) Urine Protein (Negative) Urine Glucose (UA) (Negative) Urine Ketones (Negative) Urine Blood (Negative) Urine Nitrite (Negative) Urine Bilirubin (Negative) Urine Urobilinogen (<2.0) mg/dL Ur Leukocyte Esterase (Negative) 10/22/22 Range/Units 15:04 WBC (3.8-10.6) k/uL RBC (3.80-5.40) m/uL Hgb (11.4-16.0) gm/dL Hct (34.0-46.0) % MCV (80.0-100.0) fL MCH (25.0-35.0) pg MCHC (31.0-37.0) g/dL RDW (11.5-15.5) % Plt Count (150-450) k/uL MPV Neutrophils % % Lymphocytes % % Monocytes % % Eosinophils % % Basophils % % Neutrophils # (1.3-7.7) k/uL Lymphocytes # (1.0-4.8) k/uL Monocytes # (0-1.0) k/uL Eosinophils # (0-0.7) k/uL Basophils # (0-0.2) k/uL PT (9.0-12.0) sec INR (<1.2) APTT (22.0-30.0) sec Sodium (137-145) mmol/L Potassium (3.5-5.1) mmol/L Chloride (98-107) mmol/L Carbon Dioxide (22-30) mmol/L Anion Gap mmol/L BUN (7-17) mg/dL Creatinine (0.52-1.04) mg/dL Est GFR (CKD-EPI)AfAm (>60 ml/min/1.73 sqM) Est GFR (CKD-EPI)NonAf (>60 ml/min/1.73 sqM) Glucose (74-99) mg/dL POC Glucose (mg/dL) (70-110) mg/dL POC Glu Facility Maintenance Technician ID Plasma Lactic Acid Toan (0.7-2.0) mmol/L Calcium (8.4-10.2) mg/dL Total Bilirubin (0.2-1.3) mg/dL AST (14-36) U/L ALT (4-34) U/L Alkaline Phosphatase (38-126) U/L Ammonia (<30) umol/L Troponin I (0.000-0.034) ng/mL Total Protein (6.3-8.2) g/dL Albumin (3.5-5.0) g/dL Urine Color Colorless Urine Appearance Clear (Clear) Urine pH 7.5 (5.0-8.0) Ur Specific [place] 1.011 (1.001-1.035) Urine Protein Negative (Negative) Urine Glucose (UA) Negative (Negative) Urine Ketones Negative (Negative) Urine Blood Negative (Negative) Urine Nitrite Negative (Negative) Urine Bilirubin Negative (Negative) Urine Urobilinogen <2.0 (<2.0) mg/dL Ur Leukocyte Esterase Negative (Negative) - EKG Data EKG Comments: EKG shows A. fib at [address]-T wave changes. QRS 96, QT/QTc 356/403. Disposition Clinical Impression: Aphasia Disposition: ADMITTED IP TO THIS HOSP Referrals: Nonstaff,Physician [REFERRING] - 1-2 days Time of Disposition: 15:20
--- NOTE | 2022-10-22 14:42 | CT ---
EXAMINATION TYPE: CT angio head neck CT DLP: 703.7 mGycm, Automated exposure control for dose reduction was used. DATE OF EXAM: 10/22/2022 1:54 PM COMPARISON: 10/10/2021. CLINICAL INDICATION:Female, 77 years old with history of AMS hx of stenosis; PHH, AMS. Reported hx of stroke. TECHNIQUE: Axially acquired helical CT angiogram of the head and neck was obtained with contrast. Axi al images are supplemented with 3D reconstructions [facility] criteria used. Contrast used:65 mL of Isovue 370 with IV Contrast, Oral contrast used: None. FINDINGS: CTA HEAD: No evidence of acute intracranial hemorrhage, mass effect, or midline shift. The ventricles, sulci, a nd cisterns are unremarkable. The visualized portions of the internal carotid arteries, middle cerebral arteries, anterior cerebral arteries, and posterior cerebral arteries are patent. The basilar and vertebral arteries are patent. CTA NECK: Medialized course of the carotid arteries. Respiratory motion of the patient during exam limits evalu ation of the inferior common carotid arteries bilaterally secondary to respiratory motion. The bifurc ations appear patent. There is tortuosity to the internal carotid arteries. Right Carotid System: The external carotid arteries are patent. There is less than 25% stenosis at the carotid bifurcation secondary to calcified/noncalcified plaque. The rest of the internal carotid artery is patent. Left Carotid System: The external carotid arteries are patent. There is less than 25% stenosis at the carotid bifurcation secondary to calcified/noncalcified plaque. The rest of the internal carotid artery is patent. Vertebral arteries are patent without evidence hemodynamically significant stenosis. There is a three-vessel aortic arch. The origins of the great vessels are patent. No evidence of hemo dynamically significant stenosis. Upper thorax: IMPRESSION: 1. Motion limited exam of the inferior common carotid arteries. The remainder of the common carotid arteries and internal carotid arteries appear patent. 2. No evidence of dissection of the cervical internal carotid arteries or vertebral arteries or any evidence of significant stenosis at the carotid bifurcations. 3. No evidence of intracranial high-grade stenosis or intracranial aneurysm.
[2022-10-22 15:27] LABS: Appearance,Urine Clear (Clear); Bilirubin,Urine Negative (Negative); Blood,Urine Negative (Negative); Color,Urine Colorless; Glucose,Urine (UA) Negative (Negative); Ketones,Urine Negative (Negative); Leukocyte Esterase,Urine Negative (Negative); Nitrite,Urine Negative (Negative); PH, Urine 7.5 (5.0-8.0); Protein,Urine Negative (Negative); Specific Gravity,Urine 1.011 (1.001-1.035); Urobilinogen,Urine <2.0 mg/dL (<2.0)
[2022-10-22] MEDS ORDERED: ASPIRIN 81 MG PO STA (15:32)
[2022-10-22] MEDS ORDERED: ONDANSETRON 4 MG/2 ML VIAL IVP PRN (16:14)
[2022-10-22] MEDS ORDERED: HYDROmorphone 0.5 MG/0.5 ML SYRINGE IVP PRN (16:14)
[2022-10-22] MEDS ORDERED: ACETAMINOPHEN TAB 325 MG TAB PO PRN (16:14)
[2022-10-22] MEDS ORDERED: NALOXONE 0.4 MG/ML 1 ML VIAL IV PRN (16:14)
--- NOTE | 2022-10-22 16:25 | P.HPIM ---
History of Present Illness H&P Date: 10/22/22 Patient is a 77-year-old female with history of TIA, hypertension, dyslipidemia, atrial fibrillation on Eliquis presenting with aphasia. Patient unable to provide meaningful history. No family member around. Per report, last well- known was 8 PM last night. Patient denies any pain. She denies any smoking, alcohol, illicit drug use. In the ED, temperature was 97, pulse 90, respiratory rate 18, blood pressure 104/82, saturating at 97% on room air. Laboratory analysis showed WBC of 5.7, hemoglobin 14.3, platelet 105, sodium 142, potassium 3.6, creatinine 0.66, glucose 134, ammonia level CXLIV, troponin negative. CT head did not show any acute process. CT angiogram head and neck showed patent arteries without any dissection or significant stenosis. Chest x-ray independently interpreted shows poor inspiratory effort, possible vascular congestion. Patient admitted for strokelike symptoms. Pertinent positives and negatives as discussed in HPI, a complete review of systems was performed and all other systems are negative. Patient seen and examined at bedside. Vital signs reviewed General: nontoxic, no distress, appears at stated age Derm: warm, dry Head: atraumatic, normocephalic, symmetric Eyes: EOMI, no lid lag, anicteric sclera, pupils equal round reactive to light ENT: Nose and ears atraumatic Neck: No thyromegaly, supple Mouth: no lip lesion, mucus membranes moist Cardiovascular: S1S2 irregular, no murmur, no edema Lungs: clear to auscultation bilateral, no rhonchi, no rales, no wheeze, no accessory muscle use Abdominal: soft, nontender to palpation, no guarding, no appreciable organomegaly Ext: no gross muscle atrophy, muscle strength muscle strength 5 out of 5 in all 4 extremities, no contractures Neuro: CN II-XII grossly intact, continues to repeat herself, as aphasia Psych: Alert, oriented 1, appropriate affect Assessment/Plan: Active: Acute CVA Aphasia Acute metabolic encephalopathy History of TIA Permanent Atrial fibrillation on Eliquis Hypertension Dyslipidemia -Echocardiogram with bubble study -MRI brain -Neurology consulted -Unsure if patient is taking her Eliquis given coagulation panel is normal -Continue aspirin and statin -Normal saline at 100 mL an hour -Neuro checks and telemetry -Hold antihypertensives -PT/OT/speech therapy -Continue rest of the medications when reconciled The patient is admitted with an anticipated greater than 2 midnight stay as inpatient status for evaluation of acute CVA. Surrogate decision-maker: son CODE STATUS: Full code DVT prophylaxis: Eliquis Anticipated discharge date: Pending clinical course Anticipated discharge place: Pending clinical course A total of 55 minutes was spent on the care of this complex patient more than 50% of the time was spent in counseling and care coordination. Past Medical History Past Medical History: Hyperlipidemia, Hypertension History of Any Multi-Drug Resistant Organisms: None Reported Past Surgical History: Section, Hernia Repair, Orthopedic Surgery Additional Past Surgical History / Comment(s): r/l/knee, hernia Past Psychological History: No Psychological Hx Reported Smoking Status: Never smoker Past Alcohol Use History: None Reported Past Drug Use History: None Reported - Past Family History Family Family Medical History: No Reported History Medications and Allergies Home Medications Medication Instructions Recorded Confirmed Type Aspirin EC [Ecotrin Low Dose] 81 mg PO DAILY 10/09/21 10/09/21 History Elderberry Fruit and Flower [Black 2 cap PO DAILY 10/09/21 10/09/21 History Elderberry 575 mg Cap] Esomeprazole Magnesium [NexIUM] 40 mg PO DAILY 10/09/21 10/09/21 History Furosemide [Lasix] 80 mg PO DAILY 10/09/21 10/09/21 History Losartan Potassium 100 mg PO HS 10/09/21 10/09/21 History Metoprolol Succinate (ER) [Toprol 100 mg PO DAILY 10/09/21 10/09/21 History XL] Simvastatin [Zocor] 40 mg PO HS 10/09/21 10/09/21 History Topiramate 50 mg PO BID 10/09/21 10/09/21 History Triamcinolone 0.1% Cream [Kenalog 1 applicatio TOPICAL BID 10/09/21 10/09/21 History 0.1% Cream] Apixaban [Eliquis] 5 mg PO BID #60 tab 10/10/21 Rx amLODIPine [Norvasc] 10 mg PO DAILY 30 Days #30 tab 10/11/21 Rx Allergies Allergy/AdvReac Type Severity Reaction Status Date / Time something in surgery Allergy Unknown Uncoded 10/09/21 18:53 Physical Exam Vitals: Vital Signs Temp Pulse Resp BP Pulse Ox 10/22/22 16:00 89 20 118/76 97 10/22/22 14:45 93 16 106/91 96 10/22/22 14:30 90 16 115/78 96 10/22/22 14:15 93 20 128/72 96 10/22/22 14:00 84 16 162/126 97 10/22/22 12:50 89 15 143/91 97 10/22/22 12:35 96 18 135/82 97 10/22/22 12:20 97.0 F L 90 18 104/88 97 Intake and Output 10/22/22 10/22/22 10/22/22 06:59 14:59 22:59 Other: Weight 136.078 kg Results CBC & Chem 7: 10/22/22 12:27 10/22/22 12:27 Labs: Abnormal Lab Results - Last 24 Hours (Table) 10/22/22 10/22/22 10/22/22 Range/Units 12:26 12:27 12:27 Plt Count 105 L (150-450) k/uL Glucose 134 H (74-99) mg/dL POC Glucose (mg/dL) 125 H (70-110) mg/dL Ammonia (<30) umol/L 10/22/22 Range/Units 12:27 Plt Count (150-450) k/uL Glucose (74-99) mg/dL POC Glucose (mg/dL) (70-110) mg/dL Ammonia 144 H (<30) umol/L
[2022-10-22] MEDS: SODIUM CHLORIDE 0.9% 1,000 ML IV SCH (17:48)
[2022-10-22] MEDS: ESOMEPRAZOLE 40 MG PO SCH (20:27)
[2022-10-22] MEDS: ATORVASTATIN 20 MG TAB PO SCH (21:15)
[2022-10-22] MEDS: APIXABAN 5 MG TAB PO SCH (21:15)
[2022-10-23] MEDS: SODIUM CHLORIDE 0.9% 1,000 ML IV SCH ×2 (03:00→15:57)
[2022-10-23] MEDS: METOPROLOL SUCCINATE (ER) 100 MG TAB.ER.24H PO SCH (09:02)
[2022-10-23] MEDS: ESOMEPRAZOLE 40 MG PO SCH (09:02)
[2022-10-23] MEDS: APIXABAN 5 MG TAB PO SCH ×2 (09:02→21:24)
[2022-10-23] MEDS: ASPIRIN 81 MG PO SCH (09:02)
--- NOTE | 2022-10-23 09:39 | CA ---
Transthoracic Echo Report Name: Birdie Oh Age: 77 Gender: F : 1945 Exam Date: 10/23/2022 07:36 Exam Location: [facility] Ht (in): 64 Wt (lb): 300 Ordering Physician: To Hart MD Attending/Referring Phys: [employer] [facility] Procedure CPT: Indications: stroke Cardiac Hx: Technical Quality: Fair Contrast 1: Agitated Saline Total Dose (mL): 5 Contrast 2: Total Dose (mL): MEASUREMENTS (Male / Female) Normal Values 2D ECHO LV Diastolic Diameter PLAX 5.1 cm 4.2 - 5.9 / 3.9 - 5.3 cm LV Systolic Diameter PLAX 3.5 cm IVS Diastolic Thickness 1.2 cm 0.6 - 1.0 / 0.6 - 0.9 cm LVPW Diastolic Thickness 1.1 cm 0.6 - 1.0 / 0.6 - 0.9 cm LV Relative Wall Thickness 0.4 LVOT Diameter 2.0 cm Ascending Aorta Diameter 3.4 cm M-MODE Aortic Root Diameter MM 3.6 cm LA Systolic Diameter MM 4.6 cm LA Ao Ratio MM 1.3 AV Cusp Separation MM 1.3 cm DOPPLER AV Peak Velocity 153.9 cm/s AV Peak Gradient 9.5 mmHg AV Mean Velocity 111.5 cm/s AV Mean Gradient 5.5 mmHg AV Velocity Time Integral 33.9 cm LVOT Peak Velocity 89.6 cm/s LVOT Peak Gradient 3.2 mmHg LVOT Velocity Time Integral 20.0 cm LVOT Stroke Volume 60.8 cm??? LVOT Stroke Volume Index 26.2 ml/m??? LVOT Cardiac Index 1801.2 cm???/min???m??? AV Area Cont Eq vti 1.8 cm??? AV Area Cont Eq pk 1.8 cm??? MV Peak Velocity 120.7 cm/s MV Peak Gradient 5.8 mmHg MV Mean Velocity 64.0 cm/s MV Mean Gradient 2.0 mmHg MV Velocity Time Integral 31.2 cm MR Peak Velocity 492.7 cm/s MR Peak Gradient 97.1 mmHg Mitral E Point Velocity 117.4 cm/s MV Deceleration Time 177.4 ms LV E' Lateral Velocity 14.0 cm/s Mitral E to LV E' Lateral Ratio 8.4 LV E' Septal Velocity 8.6 cm/s Mitral E to LV E' Septal Ratio 13.6 TR Peak Velocity 242.3 cm/s TR Peak Gradient 23.5 mmHg Right Atrial Pressure 15.0 mmHg Pulmonary Artery Systolic Pressu 38.5 mmHg Right Ventricular Systolic Press 38.5 mmHg FINDINGS Left Ventricle Mildly increased septal wall thickness. Mildly increased posterior wall thickness. Mild concentric left ventricular hypertrophy. Left ventricular cavity size at the upper limits of normal. No obvious regional wall motion abnormalities. Left ventricular ejection fraction is estimated at 55-60%. Right Ventricle Moderate right ventricular dilatation. Mild pulmonary hypertension. Right Atrium Severe right atrial dilatation. Left Atrium Moderate left atrial dilatation. No gxvvi-jf-idxb shunt seen at the atrial level with contrast. Mitral Valve Structurally normal mitral valve. Mitral valve thickened. Moderate mitral regurgitation. Aortic Valve Focal thickening of the aortic valve cusps. Aortic valve sclerosis. No aortic regurgitation. Tricuspid Valve Structurally normal tricuspid valve. Liof-qk-brqkawww tricuspid regurgitation. Pulmonic Valve Pulmonic valve not well visualized. Trace pulmonic regurgitation. Pericardium No pericardial effusion. Echo free space anterior to the right ventricle likely represents a fat pad. Aorta Normal size aortic root and proximal ascending aorta. CONCLUSIONS Negative bubble study. Normal LV size and systolic function with mild concentric LVH. Biatrial enlargement more of the right atrium. I aortic valve sclerosis without significant restriction moderate mitral and mild tricuspid regurgitation. No significant pulmonary hypertension. No pericardial effusion Previewed by: Dr. Laura White MD (Electronically Signed) Final Date: 23 October 2022 09:38
--- NOTE | 2022-10-23 09:55 | P.CNNES ---
History of Present Illness Consult date: 10/22/22 Requesting physician: Antonio Raymundo Reason for Consult: Aphasia NIH SS 3 History of Present Illness: Patient is a 77-year-old female with history of previous TIA, atrial fibrillation, hypertension, morbid obesity came to the hospital by ambulance today at 12:19 PM. 4 another episode of possible TIA manifesting with speech difficulty. Patient was seen by myself on 10/11/2021 for transient expressive aphasia that resolved within 24 hours. Patient at that time had presented with new onset atrial fibrillation. Patient was started on Eliquis 5 mg twice a day and discharge. Patient's 2 sons and a granddaughter was present, who provided with a history. Patient's niece apparently comes every Friday to complete her house. Patient usually unlocks the door earlier so she can come in. Patient's knees came to her house, but the door was locked. She ring the duarte, but patient did not answer to the doorbell, although patient believed that she had already opened the door. Apparently the patient went to the garage door and it took a very long time for her able to open the door, although it is a simple door handle. When she was not able to open the door, she lost her temper. Once her niece came in, patient could not talk, was like in the brain fog and was just answering in "yes no" answers". She was not clear, couldn't communicate, words did not come out quickly. There was no facial droop, problem with the vision. Or focal weakness noted. At baseline, patient struggles with walking with her walker by herself inside her house. Patient's family believed that the episode in September 2021 was worse than this one. Patient's granddaughter states that some days she is more clear mentally remembers names and cracks jokes, and some days she does not understand, rambles, does not joke around. Patient's family also mentioned that about 2 or 3 times a week, patient has episodes of brain fog in which she spaces out, and then comes back in couple hours. During these episodes, she has to pause and think what she has to say. No history of seizures. As per EMS flow sheet, when they arrived, patient was sitting in her recliner. Family mentioned that they found the patient in the kitchen with confusion. Family states that the patient has a past history of TIA, and they think that patient might have had a stroke. Patient lives alone. Last known well time was yesterday morning. Patient was alert but answering questions inappropriately, unable to follow commands. Patient denied any trauma. Patient continued to have expressive aphasia. Patient stated that this does not feel like her prev ious CVA. Denied any trauma headache or pain. No facial droop, negative for arm drift or weakness. Patient had extreme difficulty following directions. Vital signs at the scene was blood pressure 146/82, pulse rate 100, respiration 10, saturation 96% blood glucose 141. Vital signs on arrival blood pressure 104/88, pulse rate 90, temperature 97.0. CT head showed age-related atrophic and chronic small vessel ischemic change without acute intracranial process seen at this time. I personally reviewed CT head, agree with the findings. Chest x-ray showed low lung volumes with a generalized hazy appearance which could represent atelectasis versus pulmonary edema. Correlate with serum BNP. EKG shows atrial fibrillation. Blood tests shows normal CBC, PT/PTT, normal CMP, and negative troponin, UA negative. Patient has been seen by myself on 10/11/2021 for TIA manifesting with transient expressive aphasia, that resolved within 24 hours. Patient had new onset atrial fibrillation at the time, hypertension and morbid obesity. Patient was started on Eliquis 5 mg twice a day at that time. Her hemoglobin A1c was 5.9 at that time. Home medications include losartan 100 mg at bedtime, simvastatin 40 mg, metoprolol 100 mm gram daily, Lasix 80 mg, Nexium, amlodipine 10 mg and Eliquis 5 mg twice a day. Review of Systems Constitutional: Denies chills, Denies fever Eyes: denies blurred vision, denies diplopia, denies pain Ears: bilateral: decreased hearing, deny: ear discharge Ears, nose, mouth and throat: Denies headache, Denies sore throat Cardiovascular: Reports shortness of breath (Sometimes), Denies chest pain Respiratory: Reports cough, Denies excessive sputum Gastrointestinal: Denies abdominal pain, Denies diarrhea, Denies nausea, Denies vomiting Genitourinary: Reports mixed incontinence, Denies dysuria, Denies hematuria Musculoskeletal: Denies low back pain, Denies myalgias, Denies neck pain Integumentary: Reports color changes, Reports darkening of skin, Reports lesions, Reports rash, Reports sores, Reports wounds, Denies pruritus Neurological: Reports as per HPI Endocrine: Reports fatigue, Denies weight change Hematologic/Lymphatic: Reports easy bleeding, Reports easy bruising Past Medical History Past Medical History: Hyperlipidemia, Hypertension History of Any Multi-Drug Resistant Organisms: None Reported Past Surgical History: Section, Hernia Repair, Orthopedic Surgery Additional Past Surgical History / Comment(s): r/l/knee, hernia Past Psychological History: No Psychological Hx Reported Smoking Status: Never smoker Past Alcohol Use History: None Reported Past Drug Use History: None Reported - Past Family History Family Family Medical History: No Reported History Medications and Allergies Home Medications Medication Instructions Recorded Confirmed Type Esomeprazole Magnesium [NexIUM] 40 mg PO DAILY 10/09/21 10/22/22 History Furosemide [Lasix] 80 mg PO DAILY 10/09/21 10/22/22 History Losartan Potassium 100 mg PO HS 10/09/21 10/22/22 History Metoprolol Succinate (ER) [Toprol 100 mg PO DAILY 10/09/21 10/22/22 History XL] Simvastatin [Zocor] 40 mg PO HS 10/09/21 10/22/22 History Apixaban [Eliquis] 5 mg PO BID #60 tab 10/10/21 10/22/22 Rx amLODIPine [Norvasc] 10 mg PO DAILY 30 Days #30 tab 10/11/21 10/22/22 Rx Allergies Allergy/AdvReac Type Severity Reaction Status Date / Time something in surgery Allergy Unknown Uncoded 10/09/21 18:53 Physical Examination - Vital Signs Vital Signs: Vital Signs Temp Pulse Resp BP Pulse Ox 10/22/22 16:00 89 20 118/76 97 10/22/22 14:45 93 16 106/91 96 10/22/22 14:30 90 16 115/78 96 10/22/22 14:15 93 20 128/72 96 10/22/22 14:00 84 16 162/126 97 10/22/22 12:50 89 15 143/91 97 10/22/22 12:35 96 18 135/82 97 10/22/22 12:20 97.0 F L 90 18 104/88 97 Intake and Output 10/22/22 10/22/22 10/22/22 06:59 14:59 22:59 Other: Weight 136.078 kg Patient is an elderly female, in no acute distress. Patient is alert awake oriented to time place and person. Patient states it is September 2022, but then said it was October which is correct. She knows that she is in [facility] in [facility] and her date of . Speech and language functions are normal. Patient can name and repeat very well. No aphasia or dysarthria. Attention, concentration and fund of knowledge is adequ ate. Detail cognitive function testing deferred. On cranial nerve examination, pupils are equal, round and reacting to light, visual greene are full on confrontation, with no neglect on double simultaneous stimulation. Extraocular muscles are intact with no nystagmus. Face is symmetric, tongue protrudes to the midline. Palatal elevation and sensation normal, hearing is moderately decreased bilaterally and shoulder shrug normal, facial sensation normal. On muscle strength testing, there is no pronator drift and the strength is normal in arms and legs distally and proximally. Patient has significant myoclonic jerks of outstretched hands bilaterally. Deep tendon reflexes are symmetric 1+ to 2 at bilateral biceps, brachioradialis, 2 at the knees, and plantars downgoing bilaterally. Sensory to touch is equal with no neglect on double simultaneous stimulation. Cerebellar function showed no ataxia for bmlfgv-ke-wade testing. No dysdiadochokinesia. Tone and bulk of muscles normal. Gait deferred.. On general examination, there is no carotid bruit or murmur, S1-S2 audible. Ch est is clear on consultation. Abdomen is soft nontender. No organomegaly, bowel sounds present. Patient has significant peripheral edema. Patient has significant venous stasis changes, skin changes, with some redness, oozing from the skin of the lower legs bilaterally. Cannot rule out some component of cellulitis. Results - Laboratory Findings CBC and BMP: 10/22/22 12:27 10/22/22 12:27 Abnormal Lab Findings: Abnormal Labs 10/22/22 10/22/22 10/22/22 12:26 12:27 12:27 Plt Count 105 L Glucose 134 H POC Glucose (mg/dL) 125 H Ammonia 10/22/22 12:27 Plt Count Glucose POC Glucose (mg/dL) Ammonia 144 H Assessment and Plan Assessment: * Recurrent episodes of brain fog, with some speech difficulty, unclear cause. Patient is already on Eliquis 5 mg twice a day and aspirin 81 mg daily, therefore TIA appears less likely. Rule out seizures, rule out intermittent metabolic encephalopathy. * Myoclonic jerks of the outstretched hands, suggestive of metabolic encephalopathy. Her intermittent episodes of brain fog could be related to possible intermittent metabolic encephalopathy. * Atrial fibrillation * Rule out cellulitis lower extremities * Hypertension * Morbid obesity Plan: * MRI of the brain initiated by primary team. * Check EEG rule out epileptiform activity. * Patient has myoclonic jerks of outstretched hands. This is suggestive of possible metabolic encephalopathy. We will defer to IM to evaluate for any obvious causes of encephalopathy. Rule out cellulitis. * CTA of head and neck revealed motion limited exam of the inferior, and carotid arteries. The remainder of the common carotid arteries and internal to arteries appears patent. No evidence of dissection of the cervical internal carotid arteries or vertebral arteries or any evidence of significant stenosis at the carotid bifurcations. No evidence of intracranial high-grade stenosis or intracranial aneurysm. * 2-D echo. * TSH, hemoglobin A1c, lipid panel, B12. * Continue telemetry monitoring. * Continue Eliquis 5 mg twice a day and aspirin. * Patient was on simvastatin 40 mg, currently placed on Lipitor 40 mg daily. * Neurology will follow. Thank you for the consult. Discussed extensively with patient's family. Time with Patient: Greater than 30 (Complexity high)
--- NOTE | 2022-10-23 13:06 | MR ---
EXAMINATION TYPE: MR brain wo con DATE OF EXAM: 10/23/2022 12:50 PM COMPARISON: NONE HISTORY: Aphasia, evaluate for stroke. FINDINGS: The ventricles, basal cisterns and sulci overlying the cerebral convexities are mildly enlarged. There is evidence of [id number] periventricular white matter ischemic demyelination. Underlying demyelinating disease not excluded. Remote deep white matter insults are also noted. No acute edema is seen on diffusion weighted imaging. There is no evidence for midline shift or mass effect. Acute intracranial hemorrhage or extra-axial collection is not evident. The paranasal sinuses and mastoid air cells are well-aerated. IMPRESSION: Age-related atrophic and chronic small vessel ischemic change. Underlying demyelinating disease is n ot excluded. No acute intracranial process at this time.
[2022-10-23 15:50] LABS: Basophils % (A) 1 %; Eosinophils # (A) 0.1 k/uL (0-0.7); Eosinophils % (A) 3 %; HCT 43.1 % (34.0-46.0); HGB 13.9 gm/dL (11.4-16.0); Lymphocytes % (A) 20 %; MCH 30.1 pg (25.0-35.0); MCHC 32.2 g/dL (31.0-37.0); MCV 93.5 fL (80.0-100.0); Mean Platelet Volume 8.8; Monocytes # (A) 0.4 k/uL (0-1.0); Monocytes % (A) 9 %; Neutrophils # (A) 3.2 k/uL (1.3-7.7); Neutrophils % (A) 65 %; Platelet Count 108 k/uL (150-450); Potassium 3.9 mmol/L (3.5-5.1); RBC 4.61 m/uL (3.80-5.40); RDW 13.9 % (11.5-15.5); WBC 4.9 k/uL (3.8-10.6)
[2022-10-23 15:51] LABS: African American GFR (CKD) >90 (>60 ml/min/1.73 sqM); Anion Gap 7 mmol/L; Blood Urea Nitrogen 16 mg/dL (7-17); Calcium 8.4 mg/dL (8.4-10.2); Carbon Dioxide 27 mmol/L (22-30); Chloride 109 mmol/L (98-107); Glucose 107 mg/dL (74-99); Magnesium 1.9 mg/dL (1.6-2.3); Non-African American GFR(CKD) 85 (>60 ml/min/1.73 sqM); Sodium 143 mmol/L (137-145)
--- NOTE | 2022-10-23 17:42 | P.PN ---
Progress Note - Text Progress Note Date: 10/23/22 Presenting complaint: Difficulty with speech Hospital course: Patient is a 77-year-old female with history of TIA, hypertension, dyslipidemia, atrial fibrillation on Eliquis presenting with aphasia. Patient unable to provide meaningful history. No family member around. Per report, last well- known was 8 PM last night. Patient denies any pain. She denies any smoking, alcohol, illicit drug use. In the ED, temperature was 97, pulse 90, respiratory rate 18, blood pressure 104/82, saturating at 97% on room air. Laboratory analysis showed WBC of 5.7, hemoglobin 14.3, platelet 105, sodium 142, potassium 3.6, creatinine 0.66, glucose 134, ammonia level CXLIV, troponin negative. CT head did not show any acute process. CT angiogram head and neck showed patent arteries without any dissection or significant stenosis. Chest x-ray independently interpreted shows poor inspiratory effort, possible vascular congestion. Patient admitted for strokelike symptoms. 11/02/2022: Patient presented with finding difficulty to able to express herself and works. No other focal symptoms. Admitted with a diagnosis of stroke. MRI done today was showing chronic changes. Pending EEG. Patient has not noticed any change in his speech and the fact that she still finding it difficult to express what she wants to speak. Active Medications Acetaminophen (Acetaminophen Tab 325 Mg Tab) 650 mg PO Q6HR PRN PRN Reason: Mild Pain or Fever > 100.5 Apixaban (Apixaban 5 Mg Tab) 5 mg PO BID [facility]; Protocol Last Admin: 10/23/22 09:02 Dose: 5 mg Aspirin (Aspirin 81 Mg) 81 mg PO DAILY [facility] Last Admin: 10/23/22 09:02 Dose: 81 mg Atorvastatin Calcium (Atorvastatin 20 Mg Tab) 20 mg PO HS [facility] Last Admin: 10/22/22 21:15 Dose: 20 mg Hydromorphone HCl (Hydromorphone 0.5 Mg/0.5 Ml Syringe) 0.5 mg IVP Q3HR PRN PRN Reason: Moderate Pain (Scale 4 to 6) Metoprolol Succinate (Metoprolol Succinate (Er) 100 Mg Tab.Er.24h) 100 mg PO DAILY [facility] Last Admin: 10/23/22 09:02 Dose: 100 mg Naloxone HCl (Naloxone 0.4 Mg/Ml 1 Ml Vial) 0.2 mg IV Q2M PRN PRN Reason: Opioid Reversal Esomeprazole 40 Mg (Capsules) 1 each PO DAILY [facility] Last Admin: 10/23/22 09:02 Dose: 1 each Nystatin (Nystatin 100,000 Unit/Gm Powd 15 Gm) 1 applic TOPICAL BID [facility]; Protocol Ondansetron HCl (Ondansetron 4 Mg/2 Ml Vial) 4 mg IVP Q8HR PRN PRN Reason: Nausea And Vomiting On examination: VITAL SIGNS: [Afebrile, 86, 16, 142/80, 97% room air] GENERAL APPEARANCE: BMI 51.5, laying in bed awake comfortable HEENT: Normal external appearance of nose and ear. Oral cavity normal EYES: Pupils equal. Conjunctiva normal. NECK: JVD not raised. Mass not palpable. RESPIRATORY: Respiratory effort normal. Lungs clear to auscultation. CARDIOVASCULAR: First and second sounds normal. No edema. ABDOMEN: Soft. Liver and spleen not palpable. No tenderness. No mass palpable. PSYCHIATRY: Alert and oriented x3. Mood and affect normal. NEUROLOGICAL: Patient having some trouble expressing what she wants to say. No other focal findings. MUSCULAR skeletal: Evidence of OA. INVESTIGATIONS, reviewed in the clinical context: White count 4.9 hemoglobin 13.9 platelets 108 potassium 3.9 creatinine 0.66 EKG tracing personally reviewed by me-atrial fibrillation rate 89 TSH 3.9 Brain MRI. Chronic changes. No acute. 2-D echocardiogram: EF 55-60%. Moderate right ventricular dilatation. Mild pulmonary hypertension. Moderate left atrial dilatation. Negative bubble study. CT angiography: Unremarkable CT brain: Unremarkable Assessment plan: -Recurrent TIA. Seen by neurology. Concern about metabolic encephalopathy. Aspirin. Eliquis. Lipitor. -Persistent atrial fibrillation, rate controlled Eliquis 5 mg twice a day. Toprol-XL 100 mg a day -Essential hypertension Toprol-XL 100 mg day. -Morbid obesity BMI 51.5 Weight loss measures -Hyperlipidemia Lipitor -Obstructive sleep apnea, does not use machine -GERD Nexium 40 mg a day Discussed with patient. Continue current medications. Pending EEG. Follow with neurology.
[2022-10-23 20:38] LABS: Chol/HDL Ratio 2.73 Ratio; LDL Cholesterol,Calculated 95.8 mg/dL (0.0-131.0); VLDL Calculation 14.54 mg/dL (5.00-40.00)
[2022-10-23] MEDS: ATORVASTATIN 20 MG TAB PO SCH (21:24)
[2022-10-23] MEDS: NYSTATIN 100,000 UNIT/GM POWD 15 GM TOPICAL SCH (21:24)
--- NOTE | 2022-10-23 23:44 | EEG ---
ELECTROENCEPHALOGRAM REPORT PREAMBLE: This is a 77-year-old female with altered mental status, with episodes of confusion. This study is performed to evaluate for any epileptiform activity. EEG FINDINGS: This is a 21-channel digital EEG recorded with video component, utilizing 10/20 international system with referential and bipolar montages. The recording starts and continues with presence of diffuse rexphxhu-at-jbwp amplitude delta waves, with very frequent triphasic type waves seen in bihemispheric region. Occasional phase reversals were seen in the left or the right temporal region. No clear-cut epileptiform activity was seen. Different stages of sleep were not seen. Photic stimulation was not performed. IMPRESSION: This is an abnormal EEG due to the presence of diffuse background slowing of moderate to severe degree, with presence of frequent, almost continuous triphasic type waves. This is suggestive of generalized cerebral dysfunction as can be seen with toxic metabolic encephalopathy. Triphasic waves can be seen in hepatic encephalopathy. Clinical correlation is recommended. No definitive epileptiform activity was seen. Suggest prolonged EEG for further evaluation. MMODL / IJN: [id number] / EARLENE
[2022-10-24] MEDS: NYSTATIN 100,000 UNIT/GM POWD 15 GM TOPICAL SCH ×3 (08:59→20:05)
[2022-10-24] MEDS: ASPIRIN 81 MG PO SCH (09:00)
[2022-10-24] MEDS: METOPROLOL SUCCINATE (ER) 100 MG TAB.ER.24H PO SCH (09:00)
[2022-10-24] MEDS: ESOMEPRAZOLE 40 MG PO SCH (09:00)
[2022-10-24] MEDS: APIXABAN 5 MG TAB PO SCH ×2 (09:00→20:04)
--- NOTE | 2022-10-24 11:13 | P.PN ---
Subjective Progress Note Date: 10/23/22 Patient was seen for follow-up. Patient stated that she is doing much better to light. Patient states that this morning she has significant brain fog, almost as bad as how she presented with. She did not know her address, couldn't read the clock, she did remember her birthday but not the current month or the date. At present she feels much better than how she felt this morning. Objective - Vital Signs Vital signs: Vital Signs Temp 98.1 F 10/22/22 20:00 Pulse 86 10/23/22 16:00 Resp 16 10/23/22 16:00 BP 142/80 10/23/22 16:00 Pulse Ox 97 10/23/22 16:00 FiO2 Intake & Output 10/23/22 10/23/22 10/24/22 06:59 18:59 06:59 Intake Total 600 Output Total 450 350 450 Balance -450 250 -450 Intake: Oral 600 Output: Urine 450 350 450 Other: Voiding Method External Catheter External Catheter # Voids 2 - Exam Patient is alert and oriented. Speech and language functions are normal. Patient knows it is October 2022 and that she is in [facility] in [facility]. Rest of the examination is unchanged. She is more animated, mentation more better, more sharp. - Labs CBC & Chem 7: 10/23/22 15:05 10/23/22 15:05 Labs: Abnormal Lab Results - Last 24 Hours (Table) 10/23/22 10/23/22 Range/Units 15:05 15:05 Plt Count 108 L (150-450) k/uL Chloride 109 H (98-107) mmol/L Glucose 107 H (74-99) mg/dL Assessment and Plan Assessment: * Recurrent episodes of brain fog, with some speech difficulty, most likely due to metabolic encephalopathy. * Probable hepatic encephalopathy, with very high ammonia level 144. * Myoclonic jerks of the outstretched hands, suggestive of metabolic encephalopathy. Her intermittent episodes of brain fog could be related to possible intermittent metabolic encephalopathy. * Atrial fibrillation. Patient is already on Eliquis 5 mg twice a day and aspirin 81 mg daily, therefore TIA appears less likely. * Rule out cellulitis lower extremities * Hypertension * Morbid obesity Plan: * MRI of the brain revealed age-related atrophic and chronic small vessel ischemic change. Underlying demyelinating disease is not excluded. No acute process. I personally reviewed MR agree with the findings. * EEG was abnormal due to presence of diffuse background slowing of moderate to severe degree, with presence of frequent almost continuous triphasic waves. This is suggestive of generalized cerebral dysfunction as can be seen with toxic metabolic encephalopathy. Triphasic waves may be seen with hepatic encephalopathy. Clinical correlation recommended. No definitive epileptiform activity was seen. Suggest prolonged EEG for further evaluation. * Patient's ammonia level is elevated 144, suggestive of hepatic encephalopathy. We will repeat ammonia level in the morning. Suggest GI consultation for ruling out hepatic dysfunction. * CTA of head and neck revealed motion limited exam of the inferior, and carotid arteries. The remainder of the common carotid arteries and internal to arteries appears patent. No evidence of dissection of the cervical internal carotid arteries or vertebral arteries or any evidence of significant stenosis at the carotid bifurcations. No evidence of intracranial high-grade stenosis or intracranial aneurysm. * 2-D echo revealed normal left ventricular size and systolic function with EF 55-60%. Mildly increased septal wall thickness. Mildly increased posterior wall thickness. Mild concentric LVH. Moderate left atrial dilation. No oyajd-zr-ufku shunt, negative bubble study. Biatrial enlargement. Moderate MR. * TSH 3.98, hemoglobin A1c 6.0, lipid panel cholesterol 174, LDL 95, HDL 63 and triglycerides 72. Patient was on simvastatin 40 mg, currently placed on Lipitor 20 mg daily. * B12 333, which is borderline. We will start B12 replacement. * Telemetry monitoring showing atrial fibrillation with heart rate of 110. Continue Eliquis 5 mg twice a day and aspirin. * Discussed with patient's son in detail.
[2022-10-24] MEDS: ATORVASTATIN 20 MG TAB PO SCH (20:04)
--- NOTE | 2022-10-24 21:10 | P.PN ---
Progress Note - Text Progress Note Date: 10/24/22 Presenting complaint: Difficulty with speech Hospital course: Patient is a 77-year-old female with history of TIA, hypertension, dyslipidemia, atrial fibrillation on Eliquis presenting with aphasia. Patient unable to provide meaningful history. No family member around. Per report, last well- known was 8 PM last night. Patient denies any pain. She denies any smoking, alcohol, illicit drug use. In the ED, temperature was 97, pulse 90, respiratory rate 18, blood pressure 104/82, saturating at 97% on room air. Laboratory analysis showed WBC of 5.7, hemoglobin 14.3, platelet 105, sodium 142, potassium 3.6, creatinine 0.66, glucose 134, ammonia level CXLIV, troponin negative. CT head did not show any acute process. CT angiogram head and neck showed patent arteries without any dissection or significant stenosis. Chest x-ray independently interpreted shows poor inspiratory effort, possible vascular congestion. Patient admitted for strokelike symptoms. 10/23/2022: Patient presented with finding difficulty to able to express herself and works. No other focal symptoms. Admitted with a diagnosis of stroke. MRI done today was showing chronic changes. Pending EEG. Patient has not noticed any change in his speech and the fact that she still finding it difficult to express what she wants to speak. 10/24/2022: Patient feels back to baseline today. Had prolonged EEG done today. She is also pending. Ammonia level was high. Patient does not have any obvious reason for hyper ammoniemia. The medication she's taking no liver disease. Ammonia level was 89 this morning and patient is feeling back to baseline. We will nevertheless try some lactulose. The patient's only back to baseline. Son at the bedside. Active Medications Acetaminophen (Acetaminophen Tab 325 Mg Tab) 650 mg PO Q6HR PRN PRN Reason: Mild Pain or Fever > 100.5 Apixaban (Apixaban 5 Mg Tab) 5 mg PO BID [facility]; Protocol Last Admin: 10/24/22 20:04 Dose: 5 mg Aspirin (Aspirin 81 Mg) 81 mg PO DAILY [facility] Last Admin: 10/24/22 09:00 Dose: 81 mg Atorvastatin Calcium (Atorvastatin 20 Mg Tab) 20 mg PO HS [facility] Last Admin: 10/24/22 20:04 Dose: 20 mg Hydromorphone HCl (Hydromorphone 0.5 Mg/0.5 Ml Syringe) 0.5 mg IVP Q3HR PRN PRN Reason: Moderate Pain (Scale 4 to 6) Lactulose (Lactulose 20 Gm/30 Ml Cup) 20 gm PO BID [facility] Metoprolol Succinate (Metoprolol Succinate (Er) 100 Mg Tab.Er.24h) 100 mg PO DAILY [facility] Last Admin: 10/24/22 09:00 Dose: 100 mg Naloxone HCl (Naloxone 0.4 Mg/Ml 1 Ml Vial) 0.2 mg IV Q2M PRN PRN Reason: Opioid Reversal Esomeprazole 40 Mg (Capsules) 1 each PO DAILY [facility] Last Admin: 10/24/22 09:00 Dose: 1 each Nystatin (Nystatin 100,000 Unit/Gm Powd 15 Gm) 1 applic TOPICAL BID [facility]; Protocol Last Admin: 10/24/22 20:05 Dose: 1 applic Ondansetron HCl (Ondansetron 4 Mg/2 Ml Vial) 4 mg IVP Q8HR PRN PRN Reason: Nausea And Vomiting On examination: VITAL SIGNS: Afebrile, 97, 16, 1 4886, 97% room air GENERAL APPEARANCE: BMI 51.5, laying in bed awake comfortable HEENT: Normal external appearance of nose and ear. Oral cavity normal EYES: Pupils equal. Conjunctiva normal. NECK: JVD not raised. Mass not palpable. RESPIRATORY: Respiratory effort normal. Lungs clear to auscultation. CARDIOVASCULAR: First and second sounds normal. No edema. ABDOMEN: Soft. Liver and spleen not palpable. No tenderness. No mass palpable. PSYCHIATRY: Alert and oriented x3. Mood and affect normal. NEUROLOGICAL: Patient having some trouble expressing what she wants to say. No other focal findings. MUSCULAR skeletal: Evidence of OA. INVESTIGATIONS, reviewed in the clinical context: October 24: Ammonia 89 White count 4.9 hemoglobin 13.9 platelets 108 potassium 3.9 creatinine 0.66 EKG tracing personally reviewed by me-atrial fibrillation rate 89 TSH 3.9 Brain MRI. Chronic changes. No acute. 2-D echocardiogram: EF 55-60%. Moderate right ventricular dilatation. Mild pulmonary hypertension. Moderate left atrial dilatation. Negative bubble study. CT angiography: Unremarkable CT brain: Unremarkable Assessment plan: -Recurrent TIA. Seen by neurology. Concern about metabolic encephalopathy. Aspirin. Eliquis. Lipitor. -Hyper ammoniemia. No obvious cause can be deciphered. Lactulose for now. GI service not available the hospital. -Persistent atrial fibrillation, rate controlled Eliquis 5 mg twice a day. Toprol-XL 100 mg a day -Essential hypertension Toprol-XL 100 mg day. -Morbid obesity BMI 51.5 Weight loss measures -Hyperlipidemia Lipitor -Obstructive sleep apnea, does not use machine -GERD Nexium 40 mg a day Discussed with patient. And the son at the bedside. Add lactulose. Pending prolonged EEG result. Hopefully discharge tomorrow.
[2022-10-24] MEDS: LACTULOSE 20 GM/30 ML CUP PO SCH ×2 (23:50→23:52)
[2022-10-25 03:44] VITALS: RESP 20
[2022-10-25] MEDS: METOPROLOL SUCCINATE (ER) 100 MG TAB.ER.24H PO SCH (09:36)
[2022-10-25] MEDS: ASPIRIN 81 MG PO SCH (09:36)
[2022-10-25] MEDS: ESOMEPRAZOLE 40 MG PO SCH (09:36)
[2022-10-25] MEDS: APIXABAN 5 MG TAB PO SCH (09:36)
[2022-10-25] MEDS: LACTULOSE 20 GM/30 ML CUP PO SCH (09:36)
[2022-10-25] MEDS: NYSTATIN 100,000 UNIT/GM POWD 15 GM TOPICAL SCH (09:37)
[2022-10-25 09:44] VITALS: BP 141/90; PULSE 95; TEMP 97.6
--- NOTE | 2022-10-25 19:07 | P.DS ---
Providers Date of admission: 10/22/22 15:33 Expected date of discharge: 10/25/22 Attending physician: Charli Alfaro Consults: 10/22/22 16:14 Consult Physician Urgent Consulting Provider: Dereck Thao Consult Reason/Comments: Aphasia NIH SS 3 Do you want consulting provider notified?: Yes Primary care physician: Everton Flower Hospital Course: Presenting complaint: Difficulty with speech Hospital course: Patient is a 77-year-old female with history of TIA, hypertension, dyslipidemia, atrial fibrillation on Eliquis presenting with aphasia. Patient unable to provide meaningful history. No family member around. Per report, last well- known was 8 PM last night. Patient denies any pain. She denies any smoking, alcohol, illicit drug use. In the ED, temperature was 97, pulse 90, respiratory rate 18, blood pressure 104/82, saturating at 97% on room air. Laboratory analysis showed WBC of 5.7, hemoglobin 14.3, platelet 105, sodium 142, potassium 3.6, creatinine 0.66, glucose 134, ammonia level CXLIV, troponin negative. CT head did not show any acute process. CT angiogram head and neck showed patent arteries without any dissection or significant stenosis. Chest x-ray independently interpreted shows poor inspiratory effort, possible vascular congestion. Patient admitted for strokelike symptoms. 10/23/2022: Patient presented with finding difficulty to able to express herself and works. No other focal symptoms. Admitted with a diagnosis of stroke. MRI done today was showing chronic changes. Pending EEG. Patient has not noticed any change in his speech and the fact that she still finding it difficult to express what she wants to speak. 10/24/2022: Patient feels back to baseline today. Had prolonged EEG done today. She is also pending. Ammonia level was high. Patient does not have any obvious reason for hyper ammoniemia. The medication she's taking no liver disease. Ammonia level was 89 this morning and patient is feeling back to baseline. We will nevertheless try some lactulose. The patient's only back to baseline. Son at the bedside. 10/25/2022: Patient remains feeling back to baseline. Ammonia was elevated. Discharged on lactulose. Discussed with Dr. Lopez. Cause of hyper ammoniemia unclear. Rule out patient follow-up with Dr. Madi Leon. Discussed with patient. Questions answered. Patient's amlodipine discontinued. Lasix discontinued. Fluid restriction. Discussion and discharge planning more than 35 minutes On examination: VITAL SIGNS: He 7.6, 95, 20, 141/90, 96% room air GENERAL APPEARANCE: BMI 51.5, up in a recliner, comfortable HEENT: Normal external appearance of nose and ear. Oral cavity normal EYES: Pupils equal. Conjunctiva normal. NECK: JVD not raised. Mass not palpable. RESPIRATORY: Respiratory effort normal. Lungs clear to auscultation. CARDIOVASCULAR: First and second sounds normal. No edema. ABDOMEN: Soft. Liver and spleen not palpable. No tenderness. No mass palpable. PSYCHIATRY: Alert and oriented x3. Mood and affect normal. NEUROLOGICAL: Patient having some trouble expressing what she wants to say. No other focal findings. LOWER extremity: Lymphedema. Chronic skin changes. MUSCULAR skeletal: Evidence of OA. INVESTIGATIONS, reviewed in the clinical context: October 25: Ammonia 164 October 24: Ammonia 89 White count 4.9 hemoglobin 13.9 platelets 108 potassium 3.9 creatinine 0.66 EKG tracing personally reviewed by me-atrial fibrillation rate 89 TSH 3.9 Brain MRI. Chronic changes. No acute. 2-D echocardiogram: EF 55-60%. Moderate right ventricular dilatation. Mild pulmonary hypertension. Moderate left atrial dilatation. Negative bubble study. CT angiography: Unremarkable CT brain: Unremarkable Assessment plan: -Acute metabolic encephalopathy and possible hyper ammoniemia.. Aspirin. Eliquis. Lipitor. -Hyper ammoniemia. No obvious cause can be deciphered. Lactulose for now. Lipid Dr. Madi Leon outpatient. -Persistent atrial fibrillation, rate controlled Eliquis 5 mg twice a day. Toprol-XL 100 mg a day -Essential hypertension Toprol-XL 100 mg day. -Morbid obesity BMI 51.5 Weight loss measures -Hyperlipidemia Lipitor -Bilateral lower extremities the lower lymphedema. -Obstructive sleep apnea, does not use machine -GERD Nexium 40 mg a day Disposition: Home Plan - Discharge Summary New Discharge Prescriptions: New Lactulose [Cephulac] 20 gm PO DAILY ml Aspirin 81 mg PO DAILY tab Continue Losartan Potassium 100 mg PO HS Simvastatin [Zocor] 40 mg PO HS Metoprolol Succinate (ER) [Toprol XL] 100 mg PO DAILY Esomeprazole Magnesium [NexIUM] 40 mg PO DAILY Apixaban [Eliquis] 5 mg PO BID #60 tab Discontinued amLODIPine [Norvasc] 10 mg PO DAILY 30 Days #30 tab Furosemide [Lasix] 80 mg PO DAILY Discharge Medication List Esomeprazole Magnesium [NexIUM] 40 mg PO DAILY 10/09/21 [History] Losartan Potassium 100 mg PO HS 10/09/21 [History] Metoprolol Succinate (ER) [Toprol XL] 100 mg PO DAILY 10/09/21 [History] Simvastatin [Zocor] 40 mg PO HS 10/09/21 [History] Apixaban [Eliquis] 5 mg PO BID #60 tab 10/10/21 [Rx] Aspirin 81 mg PO DAILY tab 10/25/22 [Rx] Lactulose [Cephulac] 20 gm PO DAILY ml 10/25/22 [Rx] Follow up Appointment(s)/Referral(s): Jammie Leon MD [STAFF PHYSICIAN] - 10 Days (hyperammonemia, office needs insurance ID numbers. ) Everton Christiansen MD [Primary Care Provider] - 10/28/22 1:00 pm Patient Instructions/Handouts: Aphasia (DC) Activity/Diet/Wound Care/Special Instructions: -[facility] - [phone] fluid restriction - 1800 cc.day Discharge Disposition: HOME SELF-CARE
--- NOTE | 2022-10-25 22:53 | EEG ---
ELECTROENCEPHALOGRAM REPORT ELECTROENCEPHALOGRAM (EEG) REPORT: TECHNIQUE: This is a report from a prolonged 2.5 hour inpatient digital EEG performed using the 10/20 international electrode placement system. HISTORY: The patient's family found the patient to be confused and having difficulty speaking. The patient had a similar event in September of 2021. Other medical history includes hypertension, hyperlipidemia. CURRENT MEDICATIONS: Tylenol, Eliquis, aspirin, Lipitor, and others. FINDINGS: Recording start time: 10/24/2022 at 10:16 a.m. Recording end time: 10/24/2022 at 1:06 p.m. EVENTS: During this 2.5 hour video EEG recording, no clinical or electrographic seizures were recorded. BACKGROUND: The background activity consisted of poorly modulated 5 to 6 hertz waveforms with intermixed lower frequencies. Please see section on abnormalities below. ACTIVATION: Hyperventilation: Not performed. Photic stimulation: Mild symmetric driving seen. Sleep: Drowsy. ABNORMALITIES: 1. Frequent moderate voltage triphasic waves were seen. 2. Frequent runs of frontally predominant delta range slowing were seen with intermixed triphasic waves. 3. When the triphasic waves were seen, background frequencies were seen in the more poorly modulated 3 to 4 hertz range. 4. Diffuse intermittent 3 to 6 hertz slow wave activity was seen, more frontally predominant. IMPRESSION: Abnormal 2.5 hour video EEG. No clinical or electrographic seizures were recorded. No epileptiform activity was present. The triphasic waves mentioned above are not epileptiform in nature. Triphasic waves can be seen in the setting of a metabolic encephalopathy. The frontally predominant delta range slowing as well as the diffuse theta delta range slowing mentioned above is not epileptiform in nature. In combination, these findings indicate moderate diffuse cerebral dysfunction as may be seen in a toxo metabolic encephalopathy. These findings were called in preliminary format to the consulting neurologist at 2200 hours on 10/24/2022. MMODL / IJN: [id number] /
--- NOTE | 2022-10-28 08:28 | CDI ---
Documentation Clarification Form Date: 10/28/22 From: Davina Dinero Admit Date: 10/22/2022 03:33:00 PM Patient Name: Birdie Oh Visit Number: [id number] Discharge Date: 10/25/2022 12:20:00 PM ATTENTION: The Clinical Documentation Specialists (CDI) and [facility] Coding Staff appreciate your assistance in clarifying documentation. Please respond to the clarification below the line at the bottom and electronically sign. The CDI & [facility] Coding staff will review the response and follow-up if needed. Please note: Queries are made part of the Legal Health Record. If you have any questions, please contact the author of this message via ITS. Dr. Charli Alfaro, Hepatic encephalopathy is documented in the 10/23 progress note. Elevated ammonia level is 144. Acute metabolic encephalopathy is documented in H&P, consult, EEGAD, progress notes and discharge summary. Additional clarification regarding the type of encephalopathy is requested. History/Risk Factors: HX TIA, A Fib, morbid obesity w DMI of 51, HLD, ANASTASIA Clinical Indicators: Altered mental status, aphasia, myoclonic jerks of outstretched hads and brain fog. Labs: Ammonia 144, 89, 164 EEG: This issuggestive ofgeneralized cerebraldysfunctionas can be seen withtoxic metabolic encephalopathy. Triphasic waves can be seen inhepatic encephalopathy. Clinical correlation is recommended. CT/MRI Brain: Age-relatedatrophicand chronic small vesselischemicchange. Underlying demyelinating diseaseis not excluded. No acute intracranial process at this time. Treatment: MRI brain, EEG, CTA of head and neck, B12 replacement, ASA, Eliquis, Lipitor, Lactulose Please clarify the type of encephalopathy, if known: [ + ] Metabolic Encephalopathy [ ] Toxic Metabolic Encephalopathy [ ] Hepatic Encephalopathy [ ] Encephalopathy [ ] Other, please specify [ ] Unable to determine MTDD
--- NOTE | 2022-10-30 14:47 | P.PN ---
Subjective Progress Note Date: 10/24/22 Patient was seen for follow-up. Patient's son was also present today. Patient says that she is doing remarkably better. She did not have anymore brain fog today. Denies any focal symptoms. No seizure-like activity. Denies any headache. Patient's son mentions that patient is back to baseline. Patient was cracking jokes. Telemetry monitoring showing atrial fibrillation with heart rate of 110. Objective - Vital Signs Vital signs: Vital Signs Temp 98.5 F 10/23/22 20:00 Pulse 97 10/24/22 16:00 Resp 16 10/24/22 16:00 BP 148/86 10/24/22 16:00 Pulse Ox 97 10/24/22 16:00 FiO2 Intake & Output 10/23/22 10/24/22 10/24/22 18:59 06:59 18:59 Intake Total 600 236 Output Total 350 850 200 Balance 250 -850 36 Intake: Oral 600 236 Output: Urine 350 850 200 Other: Voiding Method External Catheter External Catheter External Catheter # Voids 1 1 - Exam Patient is alert and oriented. Speech and language functions are normal. Patient knows it is October 2022 and that she is in [facility] in [facility]. Rest of the examination is unchanged. She is more animated, mentation is normal, much more sharp. Patient's myoclonic jerks of outstretched hands is remarkably improved. Continues to have significant swelling of bilateral lower limbs. - Labs CBC & Chem 7: 10/23/22 15:05 10/23/22 15:05 Labs: Abnormal Lab Results - Last 24 Hours (Table) 10/23/22 10/24/22 Range/Units 15:05 07:37 Ammonia 89 H (<30) umol/L HDL Cholesterol 63.70 H (40.00-60.00) mg/dL Assessment and Plan Assessment: * Recurrent episodes of brain fog, with some speech difficulty, most likely due to metabolic encephalopathy. * Probable hepatic encephalopathy, with very high ammonia level 144. * Myoclonic jerks of the outstretched hands, suggestive of metabolic enceph alopathy. Her intermittent episodes of brain fog could be related to possible intermittent metabolic encephalopathy. * Atrial fibrillation. Patient is already on Eliquis 5 mg twice a day and aspirin 81 mg daily, therefore TIA appears less likely. * Rule out cellulitis lower extremities * Hypertension * Morbid obesity Plan: * Patient's mentation is back to normal. Encephalopathy seems to have mostly resolved. * MRI of the brain revealed age-related atrophic and chronic small vessel ischemic change. Underlying demyelinating disease is not excluded. No acute process. I personally reviewed MR agree with the findings. * Routine EEG was abnormal due to presence of diffuse background slowing of moderate to severe degree, with presence of frequent almost continuous triphasic waves. This is suggestive of generalized cerebral dysfunction as can be seen with toxic metabolic encephalopathy. Triphasic waves may be seen with hepatic encephalopathy. Clinical correlation recommended. No definitive epileptiform activity was seen. * Prolonged, 2.5 hour EEG was abnormal. No clinical or electrical graphic seizures were recorded. No epileptiform activity was present. The triphasic waves mentioned above are not epileptiform in nature. Triphasic waves can be seen in the setting of metabolic encephalopathy. The frontally predominant delta range slowing as well as the diffuse theta and delta range slowing mentioned above is not epileptiform in nature. In combination, these findings indicate moderate diffuse cerebral dysfunction as may be seen in toxic or metabolic encephalopathy. * No indication for antiepileptic medication. * Patient's ammonia level is elevated 144, suggestive of hepatic encephalopathy. Repeat ammonia level is 89. Suggest GI consultation for ruling out hepatic dysfunction. Neurologically no other workup indicated. * CTA of head and neck revealed motion limited exam of the inferior, and carotid arteries. The remainder of the common carotid arteries and internal to arteries appears patent. No evidence of dissection of the cervical internal carotid arteries or vertebral arteries or any evidence of significant stenosis at the carotid bifurcations. No evidence of intracranial high-grade stenosis or intracranial aneurysm. * 2-D echo revealed normal left ventricular size and systolic function with EF 55-60%. Mildly increased septal wall thickness. Mildly increased posterior wall thickness. Mild concentric LVH. Moderate left atrial dilation. No [id number] shunt, negative bubble study. Biatrial enlargement. Moderate MR. * TSH 3.98, hemoglobin A1c 6.0, lipid panel cholesterol 174, LDL 95, HDL 63 and triglycerides 72. Patient was on simvastatin 40 mg, currently placed on Lipitor 20 mg daily. * B12 333, which is borderline. We will start B12 replacement. * Telemetry monitoring showing atrial fibrillation with heart rate of 110. Continue Eliquis 5 mg twice a day and aspirin. * Discussed with patient's son in detail, also with patient's primary physician. Neurologically clear for discharge.
== END 2022-10-25 12:20 | disposition home health service (06) | DRG 71 ==
LOC: EC 12:19 → 3SCARD 15:33
PROVIDERS: ADMIT Hospitalist; ATTEND Hospitalist
DX: G93.41 Metabolic encephalopathy (principal); E72.20 Disorder of urea cycle metabolism, unspecified; I48.19 Other persistent atrial fibrillation; Z68.43 Body mass index [BMI] 50.0-59.9, adult; R47.01 Aphasia; E66.01 Morbid (severe) obesity due to excess calories; Z66 Do not resuscitate; G47.33 Obstructive sleep apnea (adult) (pediatric); E78.5 Hyperlipidemia, unspecified; I10 Essential (primary) hypertension; K21.9 Gastro-esophageal reflux disease without esophagitis; I89.0 Lymphedema, not elsewhere classified; G25.3 Myoclonus; Z79.01 Long term (current) use of anticoagulants; Z79.899 Other long term (current) drug therapy; Z86.73 Personal history of transient ischemic attack (TIA), and cerebral infarction without residual deficits
CPT/HCPCS: 36415; 70450; 70496; 70498; 70551; 71046; 80048; 80053; 80061; 81003; 82140; 82607; 83036; 83605; 83735; 84443; 84484; 85025; 85610; 85730; 93005; 93306; 95700; 95713; 95816; 96360; 99285

== ENCOUNTER → 2022-12-03 | Outpatient (CLI) | payer MEDICARE, OTHER ==
[2022-12-03 15:56] LABS: Basophils # (A) 0.04 X 10*3/uL (0.00-0.10); Basophils % (A) 0.5 %; Eosinophils # (A) 0.11 X 10*3/uL (0.04-0.35); Eosinophils % (A) 1.5 %; HCT 47.3 % (37.2-46.3); HGB 14.8 d/dL (12.0-15.0); Lymphocytes # (A) 0.76 X 10*3/uL (0.90-5.00); Lymphocytes % (A) 10.4 %; MCH 29.7 pg (27.0-32.0); MCHC 31.3 d/dL (32.0-37.0); Mean Platelet Volume 12.5 FL (9.5-12.2); Monocytes # (A) 0.71 X 10*3/uL (0.20-1.00); Monocytes % (A) 9.7 %; NRBC Per 100 WBC 0 X 10*3/uL (0.00-0.01); Neutrophils % (A) 77.6 %; Platelet Count 117 X 10*3/uL (140-440); RBC 4.98 X 10*6/uL (4.10-5.20); RDW 14.5 % (11.5-14.5); WBC 7.34 X 10*3/uL (4.50-10.00)
[2022-12-03 16:32] LABS: ALT 29 U/L (8-44); AST 41 U/L (13-35); Albumin 3.9 d/dL (3.8-4.9); Albumin/Globulin Ratio 1.44 Ratio (1.60-3.17); Alkaline Phosphatase 123 U/L (41-126); BUN/Creat Ratio 19.71 Ratio (12.00-20.00); Blood Urea Nitrogen 13.8 mg/dL (9.0-27.0); Calcium 9.2 mg/dL (8.7-10.3); Carbon Dioxide 29.2 mmol/L (21.6-31.8); Chloride 104 mmol/L (96-109); Globulin 2.7 d/dL (1.6-3.3); Glucose 102 mg/dL (70-110); Potassium 4.4 mmol/L (3.5-5.5); Sodium 146 mmol/L (135-145); Total Protein 6.6 d/dL (6.2-8.2)
[2022-12-03 17:50] LABS: Hepatitis B Surface Antigen Nonreactive; Hepatitis C IgG Antibody Nonreactive
--- NOTE | 2022-12-03 19:30 | US ---
EXAMINATION TYPE: US liver DATE OF EXAM: 12/03/2022 COMPARISON: NONE CLINICAL INDICATION: Female, 77 years old with history of E72.20 DISORDER OF UREA CYCLE METABOLISM; e xcess ammonia in blood, on meds now, GB resected TECHNIQUE: Multiple sonographic images of the abdomen are obtained. FINDINGS: EXAM MEASUREMENTS: Liver Length: 14.0 cm Gallbladder Wall: Surgically absent cm CBD: 0.2 cm Right Kidney: 11.4x4.7x5.4 cm INTERNET SPECIALIST NOTES: Pancreas: Tail obscured by overlying bowel gas Liver: wnl Gallbladder: Surgically absent Evidence for sonographic Allen's sign: No CBD: wnl Right Kidney: wnl Exam is limited by body habitus and bowel gas The liver is homogenous. There is no evidence of cholelithiasis. Common bile duct is unremarkable. The visualized portions of the pancreas are homogenous. Right Kidney is symmetric and free of hydro nephrosis. No renal lesions are seen. IMPRESSION: 1. There may be some mild fatty infiltration of the liver.
== END | disposition home or self-care (01) ==
LOC: RADUSWWP 08:55
PROVIDERS: ATTEND Internal Medicine Gastroenterology
DX: E72.20 Disorder of urea cycle metabolism, unspecified (principal)
CPT/HCPCS: 36415; 76705; 80053; 85025; 86803; 87340

== ENCOUNTER 2024-05-07 16:51 | Observation (INO) | payer MEDICARE, OTHER ==
[2024-05-07 18:57] LABS: Basophils # (A) 0.1 k/uL (0-0.2); Basophils % (A) 1 %; Eosinophils # (A) 0.2 k/uL (0-0.7); Eosinophils % (A) 3 %; HCT 40.2 % (34.0-46.0); HGB 12.6 gm/dL (11.4-16.0); Hypochromasia Moderate; Lymphocytes # (A) 0.6 k/uL (1.0-4.8); Lymphocytes % (A) 13 %; MCH 29.3 pg (25.0-35.0); MCHC 31.4 g/dL (31.0-37.0); MCV 93.1 fL (80.0-100.0); Mean Platelet Volume 9.4; Monocytes # (A) 0.5 k/uL (0-1.0); Monocytes % (A) 11 %; Neutrophils # (A) 3.2 k/uL (1.3-7.7); Neutrophils % (A) 69 %; Platelet Count 102 k/uL (150-450); RBC 4.32 m/uL (3.80-5.40); RDW 15.3 % (11.5-15.5); WBC 4.6 k/uL (3.8-10.6)
--- NOTE | 2024-05-07 18:59 | XR ---
EXAMINATION TYPE: XR chest 2V DATE OF EXAM: 05/07/2024 6:43 PM COMPARISON: 10/22/2022 CLINICAL INDICATION: Female, 79 years old with history of difficulty breathing, TECHNIQUE: XR chest 2V view(s) obtained. FINDINGS: The heart size is enlarged. The pulmonary vasculature is prominent. Small right lower lobe infiltrate is present. Correlate for pneumonia. Retrocardiac infiltrate may be present. On the lateral projection the posterior pleural effusion is likely present.. IMPRESSION: 1. Posterior lung infiltrates most likely at the right base. 2. Small posterior pleural effusion [facility], , 05/07/2024 6:57 PM
[2024-05-07 19:09] LABS: INR 1.2 (<1.2); Prothrombin Time 13.1 sec (10.0-12.5)
[2024-05-07 19:10] LABS: ALT 24 U/L (4-34); AST 42 U/L (14-36); African American GFR (CKD) >90 (>60 ml/min/1.73 sqM); Albumin 3.3 g/dL (3.5-5.0); Alkaline Phosphatase 102 U/L (38-126); Blood Urea Nitrogen 18 mg/dL (7-17); Calcium 8.2 mg/dL (8.4-10.2); Chloride 97 mmol/L (98-107); Glucose 103 mg/dL (74-99); Magnesium 1.9 mg/dL (1.6-2.3); Non-African American GFR(CKD) 85 (>60 ml/min/1.73 sqM); Potassium 3.5 mmol/L (3.5-5.1); Sodium 141 mmol/L (137-145); Total Bilirubin 1.3 mg/dL (0.2-1.3); Total Protein 6.1 g/dL (6.3-8.2)
[2024-05-07 19:17] LABS: Anion Gap 7 mmol/L
[2024-05-07 19:18] LABS: NT-Pro-B-Type Natriuretic Pept 437 pg/mL
[2024-05-07 19:41] LABS: Carbon Dioxide 37 mmol/L (22-30)
--- NOTE | 2024-05-07 19:43 | ED ---
General Adult HPI - General Chief complaint: Shortness of Breath Stated complaint: IAN Time Seen by Provider: 05/07/24 17:08 Source: patient, EMS, RN notes reviewed, old records reviewed Mode of arrival: EMS - History of Present Illness Initial comments: 79-year-old female presenting with increased dyspnea over the past several days. Patient was transported by paramedics, found to be hypoxic requiring supplemental oxygen. Patient does not normally wear oxygen. She denies chest pain. Denies fever. Denies significant cough. She reports worsening bilateral lower extremity edema. - Related Data Home Medications Medication Instructions Recorded Confirmed Esomeprazole Magnesium [NexIUM] 40 mg PO DAILY 10/09/21 05/07/24 Losartan Potassium 100 mg PO HS 10/09/21 05/07/24 Metoprolol Succinate (ER) [Toprol 100 mg PO DAILY 10/09/21 05/07/24 XL] Simvastatin [Zocor] 40 mg PO HS 10/09/21 05/07/24 Furosemide [Lasix] 40 mg PO HS 05/07/24 05/07/24 Furosemide [Lasix] 80 mg PO DAILY 05/07/24 05/07/24 Lactulose [Cephulac] 20 gm PO TID 05/07/24 05/07/24 Previous Rx's Medication Instructions Recorded Apixaban [Eliquis] 5 mg PO BID #60 tab 10/10/21 Allergies Allergy/AdvReac Type Severity Reaction Status Date / Time something in surgery Allergy Unknown Uncoded 05/07/24 18:03 Review of Systems ROS Statement: Those systems with pertinent positive or pertinent negative responses have been documented in the HPI. ROS Other: All systems not noted in ROS Statement are negative. Past Medical History Past Medical History: Hyperlipidemia, Hypertension, Renal Disease Additional Past Medical History / Comment(s): sleep apnea (doesnt use machine), bilateral lower leg cellulitis, TIA 2022 (no residual side effects). History of Any Multi-Drug Resistant Organisms: None Reported Past Surgical History: Section, Hernia Repair, Orthopedic Surgery Additional Past Surgical History / Comment(s): r/l/knee, hernia Past Anesthesia/Blood Transfusion Reactions: Previous Problems w/ Anesthesia Additional Past Anesthesia/Blood Transfusion Reaction / Comment(s): family stated "she stopped breathing" Past Psychological History: No Psychological Hx Reported Smoking Status: Never smoker Past Alcohol Use History: None Reported Past Drug Use History: None Reported - Past Family History Family Family Medical History: No Reported History General Exam General appearance: alert, in no apparent distress Head exam: Present: atraumatic, normocephalic Eye exam: Present: normal appearance, PERRL ENT exam: Present: normal exam Neck exam: Present: normal inspection. Absent: tenderness, meningismus Respiratory exam: Present: decreased breath sounds. Absent: respiratory distress Cardiovascular Exam: Present: regular rate, irregular rhythm GI/Abdominal exam: Present: soft. Absent: distended, tenderness Extremities exam: Present: pedal edema, other (Chronic venous stasis) Neurological exam: Present: alert, oriented X3 Psychiatric exam: Present: normal affect, normal mood Skin exam: Present: warm, dry, intact Course Vital Signs 05/07/24 05/07/24 05/07/24 17:11 19:17 19:47 Pulse Rate 95 Respiratory 20 21 Rate Blood Pressure 182/106 O2 Sat by Pulse 98 97 Oximetry 05/07/24 19:55 Pulse Rate 85 Respiratory 20 Rate Blood Pressure 161/97 O2 Sat by Pulse 98 Oximetry Medical Decision Making - Medical Decision Making Was pt. sent in by a medical professional or institution (Dr. PA, MINE INSPECTOR, urgent care, hospital, or fdc...) When possible be specific @ -No Did you speak to anyone other than the patient for history (EMS, parent, family, police, friend...)? What history was obtained from this source @ -No Did you review nursing and triage notes (agree or disagree)? Why? @ -I reviewed and agree with nursing and triage notes Were old charts reviewed (outside hosp., previous admission, EMS record, old EKG, old radiological studies, urgent care reports/EKG's, fdc records)? Report findings @ -No old charts were reviewed Differential Dyspnea: Coronary syndrome, arrhythmia, tamponade, asthma, COPD, pulmonary embolism, pneumonia, pneumothorax, pulmonary effusion, anaphylaxis, diabetic ketoacidosis, flailed chest, pulmonary contusion, diaphragmatic rupture, anemia, neuromuscular, this is not meant to be an all-inclusive list. EKG interpreted by me (3pts min.). @Atrial fibrillation rate of 83, QRS duration 102, QTc [address] segment elevation X-rays interpreted by me (1pt min.). @ -Chest x-ray shows pulmonary vascular congestion and bilateral effusion CT interpreted by me (1pt min.). @ -None done U/S interpreted by me (1pt. min.). @ -None done What testing was considered but not performed or refused? (CT, X-rays, U/S, labs)? Why? @ -None What meds were considered but not given or refused? Why? @ -None Did you discuss the management of the patient with other professionals (professionals i.e. , PA, MINE INSPECTOR, lab, RT, psych nurse, social media strategist, asbestos coverer, teacher, neighborhood conservation officer, patient case coordinator)? Give summary @ -Discussed with Dr. Alfaro, will admit Was smoking cessation discussed for >3mins.? @ -No Was critical care preformed (if so, how long)? @ -No Were there social determinants of health that impacted care today? How? (Homelessness, low income, unemployed, alcoholism, drug addiction, transportation, low edu. Level, literacy, decrease access to med. care, fdc, rehab)? @ -No Was there de-escalation of care discussed even if they declined (Discuss DNR or withdrawal of care, Hospice)? DNR status @ -No What co-morbidities impacted this encounter? (DM, HTN, Smoking, COPD, CAD, Cancer, CVA, ARF, Chemo, Hep., AIDS, mental health diagnosis, sleep apnea, morbid obesity)? @ -CHF Was patient admitted / discharged? Hospital course, mention meds given and route, prescriptions, significant lab abnormalities, going to OR and other per tinent info. @ -79-year-old female with increased dyspnea, lower extremity edema, history of CHF, chest x-ray is concerning for CHF. Patient denies cough or fever. There is concern for pneumonia on radiology read however doubt pneumonia no white count no cough no fever. Patient given IV diuresis in the emergency department. Admitted secondary to hypoxia. Undiagnosed new problem with uncertain prognosis? @ -No Drug Therapy requiring intensive monitoring for toxicity (Heparin, Nitro, Insulin, Cardizem)? @ -No Were any procedures done? @ -No Diagnosis/symptom? @ -CHF, hypoxia Acute, or Chronic, or Acute on Chronic? @Acute Uncomplicated (without systemic symptoms) or Complicated (systemic symptoms)? @ -Default Side effects of treatment? @ -No Exacerbation, Progression, or Severe Exacerbation? @ -No Poses a threat to life or bodily function? How? (Chest pain, [place], ND, pneumonia, PE, COPD, DKA, ARF, appy, cholecystitis, CVA, Diverticulitis, Homicidal, Suicidal, threat to staff... and all critical care pts) @yes, respiratory failure - Lab Data Result diagrams: 05/07/24 18:32 05/07/24 18:32 Lab Results 05/07/24 05/07/24 05/07/24 Range/Units 18:32 18:32 18:32 WBC 4.6 (3.8-10.6) k/uL RBC 4.32 (3.80-5.40) m/uL Hgb 12.6 (11.4-16.0) gm/dL Hct 40.2 (34.0-46.0) % MCV 93.1 (80.0-100.0) fL MCH 29.3 (25.0-35.0) pg MCHC 31.4 (31.0-37.0) g/dL RDW 15.3 (11.5-15.5) % Plt Count 102 L (150-450) k/uL MPV 9.4 Neutrophils % 69 % Lymphocytes % 13 % Monocytes % 11 % Eosinophils % 3 % Basophils % 1 % Neutrophils # 3.2 (1.3-7.7) k/uL Lymphocytes # 0.6 L (1.0-4.8) k/uL Monocytes # 0.5 (0-1.0) k/uL Eosinophils # 0.2 (0-0.7) k/uL Basophils # 0.1 (0-0.2) k/uL Hypochromasia Moderate PT 13.1 H (10.0-12.5) sec INR 1.2 H (<1.2) APTT 25.0 (22.0-30.0) sec Sodium 141 (137-145) mmol/L Potassium 3.5 (3.5-5.1) mmol/L Chloride 97 L (98-107) mmol/L Carbon Dioxide 37 H (22-30) mmol/L Anion Gap 7 mmol/L BUN 18 H (7-17) mg/dL Creatinine 0.63 (0.52-1.04) mg/dL Est GFR (CKD-EPI)AfAm >90 (>60 ml/min/1.73 sqM) Est GFR (CKD-EPI)NonAf 85 (>60 ml/min/1.73 sqM) Glucose 103 H (74-99) mg/dL Plasma Lactic Acid Toan (0.7-2.0) mmol/L Calcium 8.2 L (8.4-10.2) mg/dL Magnesium 1.9 (1.6-2.3) mg/dL Total Bilirubin 1.3 (0.2-1.3) mg/dL AST 42 H (14-36) U/L ALT 24 (4-34) U/L Alkaline Phosphatase 102 (38-126) U/L Troponin I (0.000-0.034) ng/mL NT-Pro-B Natriuret Pep 437 pg/mL Total Protein 6.1 L (6.3-8.2) g/dL Albumin 3.3 L (3.5-5.0) g/dL 05/07/24 05/07/24 Range/Units 18:32 18:32 WBC (3.8-10.6) k/uL RBC (3.80-5.40) m/uL Hgb (11.4-16.0) gm/dL Hct (34.0-46.0) % MCV (80.0-100.0) fL MCH (25.0-35.0) pg MCHC (31.0-37.0) g/dL RDW (11.5-15.5) % Plt Count (150-450) k/uL MPV Neutrophils % % Lymphocytes % % Monocytes % % Eosinophils % % Basophils % % Neutrophils # (1.3-7.7) k/uL Lymphocytes # (1.0-4.8) k/uL Monocytes # (0-1.0) k/uL Eosinophils # (0-0.7) k/uL Basophils # (0-0.2) k/uL Hypochromasia PT (10.0-12.5) sec INR (<1.2) APTT (22.0-30.0) sec Sodium (137-145) mmol/L Potassium (3.5-5.1) mmol/L Chloride (98-107) mmol/L Carbon Dioxide (22-30) mmol/L Anion Gap mmol/L BUN (7-17) mg/dL Creatinine (0.52-1.04) mg/dL Est GFR (CKD-EPI)AfAm (>60 ml/min/1.73 sqM) Est GFR (CKD-EPI)NonAf (>60 ml/min/1.73 sqM) Glucose (74-99) mg/dL Plasma Lactic Acid Toan 1.1 (0.7-2.0) mmol/L Calcium (8.4-10.2) mg/dL Magnesium (1.6-2.3) mg/dL Total Bilirubin (0.2-1.3) mg/dL AST (14-36) U/L ALT (4-34) U/L Alkaline Phosphatase (38-126) U/L Troponin I 0.015 (0.000-0.034) ng/mL NT-Pro-B Natriuret Pep pg/mL Total Protein (6.3-8.2) g/dL Albumin (3.5-5.0) g/dL Disposition Clinical Impression: Congestive heart failure Disposition: ADMITTED IP TO THIS HOSP Condition: Stable Is patient prescribed a controlled substance at d/c from ED?: No Referrals: Everton Christiansen MD [Primary Care Provider] - 1-2 days Time of Disposition: 20:29
[2024-05-07] MEDS ORDERED: NALOXONE 0.4 MG/ML 1 ML VIAL IV PRN (20:24)
[2024-05-07] MEDS ORDERED: ACETAMINOPHEN TAB 325 MG TAB PO PRN (20:24)
[2024-05-07] MEDS: FUROSEMIDE 10 MG/ML 4 ML VIAL IV STA (21:39)
[2024-05-07 21:47] LABS: Influenza A Not Detected (Not Detectd); Influenza B Not Detected (Not Detectd); RSV Not Detected (Not Detectd)
[2024-05-07] MEDS: FUROSEMIDE 10 MG/ML 4 ML VIAL IV SCH (21:52)
[2024-05-07] MEDS: ATORVASTATIN 20 MG TAB PO SCH (22:33)
[2024-05-07] MEDS: LOSARTAN 50 MG TAB PO SCH (22:33)
[2024-05-07] MEDS: APIXABAN 5 MG TAB PO SCH (22:33)
[2024-05-08] MEDS: PANTOPRAZOLE 40 MG TABLET PO SCH (06:02)
[2024-05-08] MEDS: LACTULOSE 20 GM/30 ML CUP PO SCH (09:13)
[2024-05-08] MEDS: METOPROLOL SUCCINATE (ER) 100 MG TAB.ER.24H PO SCH (09:13)
[2024-05-08] MEDS ORDERED: TEMAZEPAM 15 MG CAP PO PRN (11:55)
[2024-05-08] MEDS ORDERED: ONDANSETRON 4 MG/2 ML VIAL IVP PRN (11:55)
[2024-05-08] MEDS ORDERED: ALPRAZolam 0.25 MG TAB PO PRN (11:55)
[2024-05-08] MEDS ORDERED: CALCIUM CARBONATE 500 MG CHEWABLE PO PRN (11:55)
[2024-05-08] MEDS: BUDESONIDE 1 MG/2 ML NEBU INHALATION SCH (12:40)
[2024-05-08] MEDS: IPRATROPIUM-ALBUTEROL 3 ML NEB INHALATION SCH (12:43)
--- NOTE | 2024-05-08 17:48 | P.HPIM ---
History of Present Illness H&P Date: 05/08/24 Chief Complaint: Short of breath Patient is a 79-year-old f, follows with Dr. Christiansen. Chronic medical condition include atrial fibrillation, hyperlipidemia, hypertension, nonalcoholic fatty liver disease, sleep apnea and does not use the machine bilateral lower extremity lymphedema Patient presents with worsening shortness of breath for 2 to 3 days. He does sleep in a chair. Some increased lower extremity edema. Peripheral dry cough. Which there for about 3 weeks. No fever no chills. Decreased appetite. No change in the bowel pattern. Also has been wheezing. Does use diapers/pads. For urine incontinence. Review of systems: GEN.: Tired, decreased appetite EYES: None HEENT: None NECK: None RESPIRATORY: Breath wheezing e CARDIOVASCULAR: N some edema GASTROINTESTINAL: None GENITOURINARY: Urine continence MUSCULOSKELETAL: None LYMPHATICS: None HEMATOLOGICAL: None PSYCHIATRY: None NEUROLOGICAL: [Uses a walker Social history: Lives alone. Does use a walker. Denies history of smoking alcohol On examination: VITAL SIGNS: 97.7, 93, 20, 143/93, 91% room air GENERAL APPEARANCE: BMI 59.4, reclining in bed HEENT: Normal external appearance of nose and ear. Oral cavity normal EYES: Pupils equal. Conjunctiva normal. NECK: JVD unable to assess. Mass not palpable. RESPIRATORY: Respiratory effort increased l. Lungs distant breath sounds, wheezing CARDIOVASCULAR: First and second sounds normal. Edema present. ABDOMEN: Soft. Liver and spleen not palpable. No tenderness. No mass palpable. PSYCHIATRY: Alert and oriented x3. Mood and affect normal. NEUROLOGICAL: Cranial nerves grossly intact. Power system grossly intact. LOWER extremity: Lymphedema. Chronic skin changes. MUSCULAR skeletal: Evidence of OA. INVESTIGATIONS, reviewed in the clinical context: May 07: White count 4.6 hemoglobin 12.6 platelets 102 sodium 141 potassium 3.5 BUN 18 creatinine 0.63 Troponin I 0.015 proBNP 437 Influenza type A, type B, RSV, SARS Cov 2: Not detected EKG tracing personally reviewed by me-atrial fibrillation. Rate 83 Chest x-ray film personally reviewed by me-possible infiltrate 2022 2-D echocardiogram: EF 55-60%. Moderate right ventricular dilatation. Mild pulmonary hypertension. Moderate left atrial dilatation. Negative bubble study. Assessment plan: -Right basal pneumonia suspect gram-negative organism Ceftriaxone -Shortness of breath multifactorial including combination of pneumonia and pickwickian syndrome Supplemental oxygen -Possible diastolic congestive heart failure from diastolic dysfunction EF 50 to 60% IV Lasix. Fluid restriction. -Nonalcoholic fatty liver disease Lactulose -Suspect underlying restrictive lung disease from pickwickian syndrome DuoNeb. Nebulized Pulmicort -Persistent atrial fibrillation, rate controlled Eliquis 5 mg twice a day. Toprol-XL 100 mg a day -Essential hypertension Toprol-XL 100 mg day. Cozaar -Morbid obesity BMI 51.5 Weight loss measures -Hyperlipidemia Lipitor -Bilateral lower extremities, chronic lymphedema. -Obstructive sleep apnea, does not use machine -GERD Nexium 40 mg a day Past Medical History Past Medical History: Atrial Fibrillation, Hyperlipidemia, Hypertension, Liver Disease, Renal Disease, Sleep Apnea/CPAP/BIPAP Additional Past Medical History / Comment(s): sleep apnea (doesnt use machine), bilateral lower leg cellulitis, TIA 2022 (no residual side effects), non- alcoholic fatty liver disease History of Any Multi-Drug Resistant Organisms: None Reported Past Surgical History: Section, Hernia Repair, Orthopedic Surgery Additional Past Surgical History / Comment(s): bilateral knee replacements, hernia Past Anesthesia/Blood Transfusion Reactions: Previous Problems w/ Anesthesia Additional Past Anesthesia/Blood Transfusion Reaction / Comment(s): family stated "she stopped breathing" Past Psychological History: No Psychological Hx Reported Smoking Status: Never smoker Past Alcohol Use History: None Reported Past Drug Use History: None Reported - Past Family History Family Family Medical History: No Reported History Medications and Allergies Home Medications Medication Instructions Recorded Confirmed Type Esomeprazole Magnesium [NexIUM] 40 mg PO DAILY 10/09/21 05/07/24 History Losartan Potassium 100 mg PO HS 10/09/21 05/07/24 History Metoprolol Succinate (ER) [Toprol 100 mg PO DAILY 10/09/21 05/07/24 History XL] Simvastatin [Zocor] 40 mg PO HS 10/09/21 05/07/24 History Apixaban [Eliquis] 5 mg PO BID #60 tab 10/10/21 05/07/24 Rx Furosemide [Lasix] 40 mg PO HS 05/07/24 05/07/24 History Furosemide [Lasix] 80 mg PO DAILY 05/07/24 05/07/24 History Lactulose [Cephulac] 20 gm PO TID 05/07/24 05/07/24 History Allergies Allergy/AdvReac Type Severity Reaction Status Date / Time something in surgery Allergy Unknown Uncoded 05/07/24 18:03 Physical Exam Vitals: Vital Signs Temp Pulse Pulse Resp BP BP Pulse Ox 05/08/24 07:00 97.7 F 93 20 143/93 91 L 05/08/24 01:44 98.1 F 85 15 131/81 96 05/07/24 22:35 97.9 F 84 15 152/100 97 05/07/24 21:46 78 20 161/98 98 05/07/24 19:55 85 20 161/97 98 05/07/24 19:47 21 05/07/24 19:17 97 05/07/24 17:11 95 20 182/106 98 Intake and Output 05/07/24 05/08/24 05/08/24 22:59 06:59 14:59 Intake Total 118 Output Total 750 Balance -750 118 Intake: Oral 118 Output: Urine 750 Other: Voiding Method External Catheter # Voids 1 Weight 149.685 kg 147.2 kg Results CBC & Chem 7: 05/07/24 18:32 05/07/24 18:32 Labs: Abnormal Lab Results - Last 24 Hours (Table) 05/07/24 05/07/24 05/07/24 Range/Units 18:32 18:32 18:32 Plt Count 102 L (150-450) k/uL Lymphocytes # 0.6 L (1.0-4.8) k/uL PT 13.1 H (10.0-12.5) sec INR 1.2 H (<1.2) Chloride 97 L (98-107) mmol/L Carbon Dioxide 37 H (22-30) mmol/L BUN 18 H (7-17) mg/dL Glucose 103 H (74-99) mg/dL Calcium 8.2 L (8.4-10.2) mg/dL AST 42 H (14-36) U/L Total Protein 6.1 L (6.3-8.2) g/dL Albumin 3.3 L (3.5-5.0) g/dL Thrombosis Risk Factor Assmnt - Choose All That Apply Any of the Below Risk Factors Present?: Yes Each Factor Represents 1 point: Heart failure (<1month), Obesity (BMI >25), Swollen legs (current) Each Risk Factor Represents 3 Points: Age 75 years or older Thrombosis Risk Factor Assessment Total Risk Factor Score: 6 Thrombosis Risk Factor Assessment Level: High Risk
[2024-05-09 05:26] LABS: African American GFR (CKD) >90 (>60 ml/min/1.73 sqM); Blood Urea Nitrogen 17 mg/dL (7-17); Calcium 8.2 mg/dL (8.4-10.2); Chloride 97 mmol/L (98-107); Glucose 107 mg/dL (74-99); Non-African American GFR(CKD) 88 (>60 ml/min/1.73 sqM); Potassium 3.7 mmol/L (3.5-5.1); Sodium 140 mmol/L (137-145)
[2024-05-09 05:33] LABS: Anion Gap 7 mmol/L
[2024-05-09 05:34] LABS: Carbon Dioxide 36 mmol/L (22-30)
[2024-05-09 07:40] VITALS: RESP 18; TEMP 97.7
[2024-05-09] MEDS: FUROSEMIDE 40 MG TAB PO SCH (08:01)
[2024-05-09 11:48] VITALS: BP 138/86
[2024-05-09 13:24] VITALS: PULSE 99
--- NOTE | 2024-05-09 15:19 | P.DS ---
Providers Date of admission: 05/07/24 20:25 Expected date of discharge: 05/09/24 Attending physician: Charli Alfaro Primary care physician: Everton Christiansen [facility] Hospital Course: Chief Complaint: Short of breath Patient is a 79-year-old f, follows with Dr. Christiansen. Chronic medical condition include atrial fibrillation, hyperlipidemia, hypertension, nonalcoholic fatty liver disease, sleep apnea and does not use the machine bilateral lower extremity lymphedema Patient presents with worsening shortness of breath for 2 to 3 days. He does sleep in a chair. Some increased lower extremity edema. Peripheral dry cough. Which there for about 3 weeks. No fever no chills. Decreased appetite. No change in the bowel pattern. Also has been wheezing. Does use diapers/pads. For urine incontinence. May 09: Admitted with pneumonia. Received IV ceftriaxone. Doing much better. Will discharge on Ceftin 5 twice daily for 3 days. Also dose of Lasix is being cut back. Fluid restriction has been added. Wheezing much improved. Albuterol as needed. Advised to use incentive spirometry. Discussion and discharge planning more than 35 minutes Social history: Lives alone. Does use a walker. Denies history of smoking alcohol On examination: VITAL SIGNS: 97.7, 138 x 86, 99, 18, 93% room air GENERAL APPEARANCE: BMI 59.4, reclining in bed HEENT: Normal external appearance of nose and ear. Oral cavity normal EYES: Pupils equal. Conjunctiva normal. NECK: JVD unable to assess. Mass not palpable. RESPIRATORY: Respiratory effort increased l. Lungs distant breath sounds, no wheezing CARDIOVASCULAR: First and second sounds normal. Edema present. ABDOMEN: Soft. Liver and spleen not palpable. No tenderness. No mass palpable. PSYCHIATRY: Alert and oriented x3. Mood and affect normal. NEUROLOGICAL: Cranial nerves grossly intact. Power system grossly intact. LOWER extremity: Lymphedema. Chronic skin changes. MUSCULAR skeletal: Evidence of OA. INVESTIGATIONS, reviewed in the clinical context: May 09: Potassium 3.7 creatinine 0.58. Procalcitonin 0.07 May 07: White count 4.6 hemoglobin 12.6 platelets 102 sodium 141 potassium 3.5 BUN 18 creatinine 0.63 Troponin I 0.015 proBNP 437 Influenza type A, type B, RSV, SARS Cov 2: Not detected EKG tracing personally reviewed by me-atrial fibrillation. Rate 83 Chest x-ray film personally reviewed by me-possible infiltrate 2022 2-D echocardiogram: EF 55-60%. Moderate right ventricular dilatation. Mild pulmonary hypertension. Moderate left atrial dilatation. Negative bubble study. Assessment plan: -Right basal pneumonia suspect gram-negative organism: Better Ceftriaxone Ceftin 500 mg twice daily for 3 days -Shortness of breath multifactorial including combination of pneumonia and pickwickian syndrome: Improved Supplemental oxygen -Possible diastolic congestive heart failure from diastolic dysfunction EF 50 to 60% IV Lasix. Fluid restriction. Discharged home on fluid restriction to 1 cc a day. Dose of Lasix cut back -Nonalcoholic fatty liver disease Lactulose -Suspect underlying restrictive lung disease from pickwickian syndrome DuoNeb. Nebulized Pulmicort Discharge with albuterol as needed. Incentive spirometry. -Persistent atrial fibrillation, rate controlled Eliquis 5 mg twice a day. Toprol-XL 100 mg a day -Essential hypertension Toprol-XL 100 mg day. Cozaar -Morbid obesity BMI 51.5 Weight loss measures -Hyperlipidemia Lipitor -Bilateral lower extremities, chronic lymphedema. Has lymphedema pump at home -Obstructive sleep apnea, does not use machine -GERD Nexium 40 mg a day Disposition: Home Past Medical History Past Medical History: Atrial Fibrillation, Hyperlipidemia, Hypertension, Liver Disease, Renal Disease, Sleep Apnea/CPAP/BIPAP Additional Past Medical History / Comment(s): sleep apnea (doesnt use machine), bilateral lower leg cellulitis, TIA 2022 (no residual side effects), non- alcoholic fatty liver disease History of Any Multi-Drug Resistant Organisms: None Reported Past Surgical History: Section, Hernia Repair, Orthopedic Surgery Additional Past Surgical History / Comment(s): bilateral knee replacements, hernia Past Anesthesia/Blood Transfusion Reactions: Previous Problems w/ Anesthesia Additional Past Anesthesia/Blood Transfusion Reaction / Comment(s): family stated "she stopped breathing" Past Psychological History: No Psychological Hx Reported Smoking Status: Never smoker Past Alcohol Use History: None Reported Past Drug Use History: None Reported Plan - Discharge Summary New Discharge Prescriptions: New Albuterol Sulfate [Albuterol Sulfate Hfa] 1 puff PO Q4-6H #8.5 gm cefuroxime axetiL [Ceftin] 500 mg PO BID #6 tab Continue Losartan Potassium 100 mg PO HS Furosemide [Lasix] 80 mg PO DAILY Simvastatin [Zocor] 40 mg PO HS Metoprolol Succinate (ER) [Toprol XL] 100 mg PO DAILY Esomeprazole Magnesium [NexIUM] 40 mg PO DAILY Apixaban [Eliquis] 5 mg PO BID #60 tab Lactulose [Cephulac] 20 gm PO TID Discontinued Furosemide [Lasix] 40 mg PO HS Discharge Medication List Esomeprazole Magnesium [NexIUM] 40 mg PO DAILY 10/09/21 [History] Losartan Potassium 100 mg PO HS 10/09/21 [History] Metoprolol Succinate (ER) [Toprol XL] 100 mg PO DAILY 10/09/21 [History] Simvastatin [Zocor] 40 mg PO HS 10/09/21 [History] Apixaban [Eliquis] 5 mg PO BID #60 tab 10/10/21 [Rx] Furosemide [Lasix] 80 mg PO DAILY 05/07/24 [History] Lactulose [Cephulac] 20 gm PO TID 05/07/24 [History] Albuterol Sulfate [Albuterol Sulfate Hfa] 1 puff PO Q4-6H #8.5 gm 05/09/24 [Rx] cefuroxime axetiL [Ceftin] 500 mg PO BID #6 tab 05/09/24 [Rx] Follow up Appointment(s)/Referral(s): Everton Christiansen MD [Primary Care Provider] - 1-2 days Patient Instructions/Handouts: Heart Failure (DC), Heart Failure (GEN), Community Acquired Pneumonia (DC), Community Acquired Pneumonia (GEN) Activity/Diet/Wound Care/Special Instructions: FOLLOW UP DIRECTED, SOONER FOR WORSENING SYMPTOMS, PROBLEMS, OR CONCERNS.
== END 2024-05-09 14:50 | disposition home or self-care (01) ==
LOC: EC 16:51 → 6NMEDSUR 20:25
PROVIDERS: ADMIT Hospitalist; ATTEND Hospitalist
DX: I11.0 Hypertensive heart disease with heart failure (principal); I50.9 Heart failure, unspecified; J18.9 Pneumonia, unspecified organism; I48.19 Other persistent atrial fibrillation; E78.5 Hyperlipidemia, unspecified; K21.9 Gastro-esophageal reflux disease without esophagitis; I89.0 Lymphedema, not elsewhere classified; K76.0 Fatty (change of) liver, not elsewhere classified; E66.2 Morbid (severe) obesity with alveolar hypoventilation; Z68.43 Body mass index [BMI] 50.0-59.9, adult; Z86.73 Personal history of transient ischemic attack (TIA), and cerebral infarction without residual deficits; Z79.01 Long term (current) use of anticoagulants; Z79.899 Other long term (current) drug therapy
CPT/HCPCS: 96376; 96365 ×2; 96375; 99285; 36415; 94640 ×4; 94760; 93005; 83880; 80053; 80048; 83605; 83735; 84484; 85025; 85610; 85730; 84145; 87636; 71046; G0378 ×3; J1940 ×2; J0696 ×2